=== PATIENT | male | born 1965 | race Caucasian/White ===

== ENCOUNTER 2022-11-21 15:02 | Inpatient (IN) | payer OTHER ==
[2022-11-21] MEDS ORDERED: Nitroglycerin 0.4 MG Tab.SL SL PRN (16:14)
[2022-11-21] MEDS: Insulin Lispro 100 Unit/ML 3 ML KwikPen SUBCUT SCH (17:52)
[2022-11-21] MEDS ORDERED: Tamsulosin 0.4 MG Cap.ER PO SCH ×2 (18:00→20:00)
[2022-11-21] MEDS: Sennosides/Docusate Sodium 50-8.6 MG Tab PO SCH (20:09)
[2022-11-21] MEDS: Carvedilol 12.5 MG Tab PO SCH (20:09)
[2022-11-21] MEDS: Gabapentin 300 MG Cap PO SCH (20:09)
[2022-11-21] MEDS: atorvaSTATin 40 MG Tab PO SCH (20:11)
[2022-11-21] MEDS: Insulin Glargine,Hum.Rec.Anlog 100 UNIT/ML 3 ML Pen SUBCUT SCH (20:12)
[2022-11-21] MEDS: Melatonin 3 MG Tab PO PRN (20:16)
[2022-11-21] MEDS ORDERED: Finasteride 5 MG Tab PO SCH (21:00)
[2022-11-21] MEDS ORDERED: diphenhydrAMINE 50 MG/ML SDV IM PRN (21:05)
[2022-11-22 07:12] LABS: EOSINOPHILS ABSOLUTE AUTO 0.94 10^3/uL (0.10-0.30); EOSINOPHILS PERCENT AUTO 9.5 % (1.0-3.0); HEMATOCRIT 36.2 % (40.0-52.0); HEMOGLOBIN 11.6 g/dL (13.0-17.0); IMMATURE GRAN ABSOLUTE AUTO 0.02 10^3/uL (0.00-0.50); IMMATURE GRAN PERCENT AUTO 0.2 % (0.0-5.0); LYMPHOCYTES ABSOLUTE AUTO 2.93 10^3/uL (1.00-4.00); LYMPHOCYTES PERCENT AUTO 29.7 % (20.0-40.0); MEAN CORPUSCULAR VOLUME 84.2 fL (82.0-92.0); MEAN PLATELET VOLUME 8.6 fL (7.4-10.4); MONOCYTES ABSOLUTE AUTO 0.79 10^3/uL (0.10-0.80); NEUTROPHILS PERCENT AUTO 51.6 % (50.0-70.0); PLATELET COUNT,PLT 298 10^3/uL (150-400); RED CELL DISTRIBUTION WIDTH 13.8 % (11.5-14.5); WHITE BLOOD CELL COUNT,WBC 9.88 10^3/uL (5.00-10.00)
[2022-11-22 07:39] LABS: ALBUMIN 2.44 g/dL (3.40-5.00); ANION GAP 12.9 mmol/L (5-15); BILIRUBIN TOTAL 0.2 mg/dL (0.2-1.0); CALCIUM 8.6 mg/dL (8.7-10.3); CARBON DIOXIDE,CO2 28.2 mmol/L (21.0-32.0); CREATININE 0.93 mg/dL (0.51-1.17); EST CRCL DRUG DOSING (CG) 83.36 mL/min; POTASSIUM,K 4.1 mmol/L (3.5-5.1); PROTEIN TOTAL,TP 7.3 g/dL (6.4-8.2)
[2022-11-22] MEDS: Insulin Lispro 100 Unit/ML 3 ML KwikPen SUBCUT SCH ×3 (07:55→17:57)
[2022-11-22] MEDS: Gabapentin 300 MG Cap PO SCH ×3 (08:18→20:18)
[2022-11-22] MEDS: Aspirin 81 MG Tab.EC PO SCH (08:18)
[2022-11-22] MEDS: Furosemide 40 MG Tab PO SCH (08:19)
[2022-11-22] MEDS: Sertraline 50 MG Tab PO SCH (08:19)
[2022-11-22] MEDS: Multivitamins with Minerals/Iron/Folic Acid/Lycopene Tab PO SCH (08:19)
[2022-11-22] MEDS: Sennosides/Docusate Sodium 50-8.6 MG Tab PO SCH ×2 (08:20→20:18)
[2022-11-22] MEDS: Clopidogrel 75 MG Tab PO SCH (08:20)
[2022-11-22] MEDS: Carvedilol 12.5 MG Tab PO SCH ×2 (08:20→20:17)
[2022-11-22] MEDS: cefTRIAXone 2 GM Vial IVPUSH SCH (08:40)
[2022-11-22] MEDS ORDERED: Finasteride 5 MG Tab PO SCH (09:00)
[2022-11-22] MEDS ORDERED: Tamsulosin 0.4 MG Cap.ER PO SCH (09:00)
[2022-11-22] MEDS ORDERED: cefTRIAXone 2 GM Vial IV SCH (09:00)
[2022-11-22] MEDS: Enoxaparin 40 MG/0.4 ML Syringe SUBCUT SCH (14:03)
[2022-11-22] MEDS: atorvaSTATin 40 MG Tab PO SCH (20:17)
[2022-11-22] MEDS: Melatonin 3 MG Tab PO PRN (20:17)
[2022-11-22] MEDS: Insulin Glargine,Hum.Rec.Anlog 100 UNIT/ML 3 ML Pen SUBCUT SCH (20:22)
[2022-11-23] MEDS: Insulin Lispro 100 Unit/ML 3 ML KwikPen SUBCUT SCH ×3 (08:14→17:16)
[2022-11-23] MEDS: Gabapentin 300 MG Cap PO SCH ×3 (08:22→21:34)
[2022-11-23] MEDS: Multivitamins with Minerals/Iron/Folic Acid/Lycopene Tab PO SCH (08:23)
[2022-11-23] MEDS: Clopidogrel 75 MG Tab PO SCH (08:23)
[2022-11-23] MEDS: Aspirin 81 MG Tab.EC PO SCH (08:23)
[2022-11-23] MEDS: Furosemide 40 MG Tab PO SCH (08:23)
[2022-11-23] MEDS: Sertraline 50 MG Tab PO SCH (08:24)
[2022-11-23] MEDS: Sennosides/Docusate Sodium 50-8.6 MG Tab PO SCH ×2 (08:25→21:33)
[2022-11-23] MEDS: Carvedilol 12.5 MG Tab PO SCH ×2 (08:25→21:33)
[2022-11-23] MEDS: cefTRIAXone 2 GM Vial IVPUSH SCH (08:26)
[2022-11-23] MEDS: Enoxaparin 40 MG/0.4 ML Syringe SUBCUT SCH ×2 (14:39→21:31)
[2022-11-23] MEDS: atorvaSTATin 40 MG Tab PO SCH (21:33)
[2022-11-23] MEDS: Melatonin 3 MG Tab PO SCH (21:34)
[2022-11-23] MEDS: Insulin Glargine,Hum.Rec.Anlog 100 UNIT/ML 3 ML Pen SUBCUT SCH (21:37)
[2022-11-23] MEDS: Non-Formulary Medication 1 Each (Empagliflozin [Jardiance] 10 MG Tablet) PO SCH (23:19)
[2022-11-24] MEDS: Carvedilol 12.5 MG Tab PO SCH ×2 (08:00→20:22)
[2022-11-24] MEDS: Insulin Lispro 100 Unit/ML 3 ML KwikPen SUBCUT SCH ×3 (08:01→18:03)
[2022-11-24] MEDS: Multivitamins with Minerals/Iron/Folic Acid/Lycopene Tab PO SCH (08:48)
[2022-11-24] MEDS: Gabapentin 300 MG Cap PO SCH ×3 (08:48→20:22)
[2022-11-24] MEDS: Sertraline 50 MG Tab PO SCH (08:48)
[2022-11-24] MEDS: Aspirin 81 MG Tab.EC PO SCH (08:49)
[2022-11-24] MEDS: Sennosides/Docusate Sodium 50-8.6 MG Tab PO SCH ×2 (08:49→20:22)
[2022-11-24] MEDS: Clopidogrel 75 MG Tab PO SCH (08:49)
[2022-11-24] MEDS: Furosemide 40 MG Tab PO SCH (08:49)
[2022-11-24] MEDS: cefTRIAXone 2 GM Vial IVPUSH SCH (08:49)
[2022-11-24] MEDS: Sodium Chloride 0.9% 10 ML Syringe FLUSH SCH (08:50)
[2022-11-24] MEDS: Non-Formulary Medication 1 Each (Empagliflozin [Jardiance] 10 MG Tablet) PO SCH (09:10)
[2022-11-24] MEDS: Enoxaparin 40 MG/0.4 ML Syringe SUBCUT SCH (20:21)
[2022-11-24] MEDS: Melatonin 3 MG Tab PO SCH (20:22)
[2022-11-24] MEDS: atorvaSTATin 40 MG Tab PO SCH (20:22)
[2022-11-24] MEDS: Insulin Glargine,Hum.Rec.Anlog 100 UNIT/ML 3 ML Pen SUBCUT SCH (20:45)
[2022-11-25] MEDS: Insulin Lispro 100 Unit/ML 3 ML KwikPen SUBCUT SCH ×3 (08:02→17:53)
[2022-11-25] MEDS: cefTRIAXone 2 GM Vial IVPUSH SCH (08:41)
[2022-11-25] MEDS: Multivitamins with Minerals/Iron/Folic Acid/Lycopene Tab PO SCH (08:43)
[2022-11-25] MEDS: Furosemide 40 MG Tab PO SCH (08:44)
[2022-11-25] MEDS: Clopidogrel 75 MG Tab PO SCH (08:44)
[2022-11-25] MEDS: Carvedilol 12.5 MG Tab PO SCH ×2 (08:44→20:37)
[2022-11-25] MEDS: Aspirin 81 MG Tab.EC PO SCH (08:44)
[2022-11-25] MEDS: Gabapentin 300 MG Cap PO SCH ×3 (08:44→20:36)
[2022-11-25] MEDS: Sennosides/Docusate Sodium 50-8.6 MG Tab PO SCH ×2 (08:44→20:37)
[2022-11-25] MEDS: Sertraline 50 MG Tab PO SCH (08:44)
[2022-11-25] MEDS: Non-Formulary Medication 1 Each (Empagliflozin [Jardiance] 10 MG Tablet) PO SCH (08:46)
[2022-11-25] MEDS: Sodium Chloride 0.9% 10 ML Syringe FLUSH SCH (08:47)
[2022-11-25] MEDS: Enoxaparin 40 MG/0.4 ML Syringe SUBCUT SCH (20:34)
[2022-11-25] MEDS: atorvaSTATin 40 MG Tab PO SCH (20:37)
[2022-11-25] MEDS: Melatonin 3 MG Tab PO SCH (20:37)
[2022-11-25] MEDS: Insulin Glargine,Hum.Rec.Anlog 100 UNIT/ML 3 ML Pen SUBCUT SCH (20:45)
[2022-11-26] MEDS: Insulin Lispro 100 Unit/ML 3 ML KwikPen SUBCUT SCH ×3 (08:02→19:01)
[2022-11-26] MEDS: Sodium Chloride 0.9% 10 ML Syringe FLUSH SCH (08:32)
[2022-11-26] MEDS: cefTRIAXone 2 GM Vial IVPUSH SCH (08:32)
[2022-11-26] MEDS: Gabapentin 300 MG Cap PO SCH ×3 (08:34→20:33)
[2022-11-26] MEDS: Sertraline 50 MG Tab PO SCH (08:35)
[2022-11-26] MEDS: Clopidogrel 75 MG Tab PO SCH (08:35)
[2022-11-26] MEDS: Furosemide 40 MG Tab PO SCH (08:36)
[2022-11-26] MEDS: Multivitamins with Minerals/Iron/Folic Acid/Lycopene Tab PO SCH (08:36)
[2022-11-26] MEDS: Aspirin 81 MG Tab.EC PO SCH (08:36)
[2022-11-26] MEDS: Sennosides/Docusate Sodium 50-8.6 MG Tab PO SCH ×2 (08:36→20:35)
[2022-11-26] MEDS: Carvedilol 12.5 MG Tab PO SCH ×2 (08:37→20:33)
[2022-11-26] MEDS: Non-Formulary Medication 1 Each (Empagliflozin [Jardiance] 10 MG Tablet) PO SCH (08:38)
[2022-11-26 13:02] LABS: BASOPHILS ABSOLUTE AUTO 0.12 10^3/uL (0.00-0.10); BASOPHILS PERCENT AUTO 1.1 % (0.0-1.0); EOSINOPHILS ABSOLUTE AUTO 1.25 10^3/uL (0.10-0.30); EOSINOPHILS PERCENT AUTO 11.8 % (1.0-3.0); HEMATOCRIT 37.1 % (40.0-52.0); HEMOGLOBIN 11.7 g/dL (13.0-17.0); IMMATURE GRAN ABSOLUTE AUTO 0.02 10^3/uL (0.00-0.50); IMMATURE GRAN PERCENT AUTO 0.2 % (0.0-5.0); LYMPHOCYTES ABSOLUTE AUTO 3.38 10^3/uL (1.00-4.00); LYMPHOCYTES PERCENT AUTO 31.8 % (20.0-40.0); MEAN CORPUSCULAR HEMOGLOBIN 26.7 pg (27.0-31.0); MEAN CORPUSCULAR HGB CONC 31.5 g/dL (32.0-36.0); MEAN CORPUSCULAR VOLUME 84.5 fL (82.0-92.0); MEAN PLATELET VOLUME 8.6 fL (7.4-10.4); MONOCYTES ABSOLUTE AUTO 0.69 10^3/uL (0.10-0.80); MONOCYTES PERCENT AUTO 6.5 % (2.0-8.0); NEUTROPHILS ABSOLUTE AUTO 5.16 10^3/uL (2.50-7.00); NEUTROPHILS PERCENT AUTO 48.6 % (50.0-70.0); PLATELET COUNT,PLT 281 10^3/uL (150-400); RED BLOOD CELL COUNT 4.39 10^6/uL (4.50-6.00); WHITE BLOOD CELL COUNT,WBC 10.62 10^3/uL (5.00-10.00)
[2022-11-26 13:22] LABS: CREATININE 0.99 mg/dL (0.51-1.17); EST CRCL DRUG DOSING (CG) 78.31 mL/min
[2022-11-26] MEDS: atorvaSTATin 40 MG Tab PO SCH (20:33)
[2022-11-26] MEDS: Melatonin 3 MG Tab PO SCH (20:33)
[2022-11-26] MEDS: Enoxaparin 40 MG/0.4 ML Syringe SUBCUT SCH (20:34)
[2022-11-26] MEDS: Insulin Glargine,Hum.Rec.Anlog 100 UNIT/ML 3 ML Pen SUBCUT SCH (20:35)
[2022-11-27] MEDS: Insulin Lispro 100 Unit/ML 3 ML KwikPen SUBCUT SCH ×3 (08:05→17:52)
[2022-11-27] MEDS: cefTRIAXone 2 GM Vial IVPUSH SCH (08:25)
[2022-11-27] MEDS: Aspirin 81 MG Tab.EC PO SCH (08:26)
[2022-11-27] MEDS: Multivitamins with Minerals/Iron/Folic Acid/Lycopene Tab PO SCH (08:26)
[2022-11-27] MEDS: Carvedilol 12.5 MG Tab PO SCH ×2 (08:26→20:46)
[2022-11-27] MEDS: Gabapentin 300 MG Cap PO SCH ×3 (08:26→20:48)
[2022-11-27] MEDS: Furosemide 40 MG Tab PO SCH (08:26)
[2022-11-27] MEDS: Sennosides/Docusate Sodium 50-8.6 MG Tab PO SCH ×2 (08:26→20:48)
[2022-11-27] MEDS: Clopidogrel 75 MG Tab PO SCH (08:27)
[2022-11-27] MEDS: Sertraline 50 MG Tab PO SCH (08:27)
[2022-11-27] MEDS: Non-Formulary Medication 1 Each (Empagliflozin [Jardiance] 10 MG Tablet) PO SCH (08:28)
[2022-11-27] MEDS: Sodium Chloride 0.9% 10 ML Syringe FLUSH SCH (08:37)
[2022-11-27] MEDS: Enoxaparin 40 MG/0.4 ML Syringe SUBCUT SCH (20:47)
[2022-11-27] MEDS: Melatonin 3 MG Tab PO SCH (20:47)
[2022-11-27] MEDS: atorvaSTATin 40 MG Tab PO SCH (20:47)
[2022-11-27] MEDS: Insulin Glargine,Hum.Rec.Anlog 100 UNIT/ML 3 ML Pen SUBCUT SCH (20:58)
[2022-11-28] MEDS: Insulin Lispro 100 Unit/ML 3 ML KwikPen SUBCUT SCH ×3 (07:52→17:48)
[2022-11-28] MEDS: Multivitamins with Minerals/Iron/Folic Acid/Lycopene Tab PO SCH (08:52)
[2022-11-28] MEDS: Sertraline 50 MG Tab PO SCH (08:52)
[2022-11-28] MEDS: Aspirin 81 MG Tab.EC PO SCH (08:52)
[2022-11-28] MEDS: Sennosides/Docusate Sodium 50-8.6 MG Tab PO SCH ×2 (08:52→20:28)
[2022-11-28] MEDS: Gabapentin 300 MG Cap PO SCH ×3 (08:52→20:27)
[2022-11-28] MEDS: Carvedilol 12.5 MG Tab PO SCH ×2 (08:52→20:31)
[2022-11-28] MEDS: cefTRIAXone 2 GM Vial IVPUSH SCH (08:53)
[2022-11-28] MEDS: Clopidogrel 75 MG Tab PO SCH (08:53)
[2022-11-28] MEDS: Furosemide 40 MG Tab PO SCH (08:53)
[2022-11-28] MEDS: Non-Formulary Medication 1 Each (Empagliflozin [Jardiance] 10 MG Tablet) PO SCH (08:53)
[2022-11-28] MEDS: Sodium Chloride 0.9% 10 ML Syringe FLUSH SCH (09:03)
[2022-11-28] MEDS: atorvaSTATin 40 MG Tab PO SCH (20:28)
[2022-11-28] MEDS: Melatonin 3 MG Tab PO SCH (20:29)
[2022-11-28] MEDS: Enoxaparin 40 MG/0.4 ML Syringe SUBCUT SCH (20:30)
[2022-11-28] MEDS: Insulin Glargine,Hum.Rec.Anlog 100 UNIT/ML 3 ML Pen SUBCUT SCH (20:36)
[2022-11-29] MEDS: Aspirin 81 MG Tab.EC PO SCH (09:22)
[2022-11-29] MEDS: Sertraline 50 MG Tab PO SCH (09:22)
[2022-11-29] MEDS: Gabapentin 300 MG Cap PO SCH ×3 (09:22→20:05)
[2022-11-29] MEDS: Clopidogrel 75 MG Tab PO SCH (09:22)
[2022-11-29] MEDS: cefTRIAXone 2 GM Vial IVPUSH SCH (09:22)
[2022-11-29] MEDS: Sennosides/Docusate Sodium 50-8.6 MG Tab PO SCH ×2 (09:23→20:05)
[2022-11-29] MEDS: Furosemide 40 MG Tab PO SCH (09:23)
[2022-11-29] MEDS: Multivitamins with Minerals/Iron/Folic Acid/Lycopene Tab PO SCH (09:23)
[2022-11-29] MEDS: Insulin Lispro 100 Unit/ML 3 ML KwikPen SUBCUT SCH ×3 (09:23→17:25)
[2022-11-29] MEDS: Carvedilol 12.5 MG Tab PO SCH ×2 (09:23→20:05)
[2022-11-29] MEDS: Non-Formulary Medication 1 Each (Empagliflozin [Jardiance] 10 MG Tablet) PO SCH (09:25)
[2022-11-29] MEDS: Sodium Chloride 0.9% 10 ML Syringe FLUSH SCH (09:27)
[2022-11-29] MEDS: Enoxaparin 40 MG/0.4 ML Syringe SUBCUT SCH (20:05)
[2022-11-29] MEDS: atorvaSTATin 40 MG Tab PO SCH (20:05)
[2022-11-29] MEDS: Melatonin 3 MG Tab PO SCH (20:05)
[2022-11-29] MEDS: Insulin Glargine,Hum.Rec.Anlog 100 UNIT/ML 3 ML Pen SUBCUT SCH (20:06)
[2022-11-30] MEDS: Sennosides/Docusate Sodium 50-8.6 MG Tab PO SCH ×2 (08:06→20:51)
[2022-11-30] MEDS: Carvedilol 12.5 MG Tab PO SCH ×2 (08:06→20:51)
[2022-11-30] MEDS: Aspirin 81 MG Tab.EC PO SCH (08:06)
[2022-11-30] MEDS: Multivitamins with Minerals/Iron/Folic Acid/Lycopene Tab PO SCH (08:07)
[2022-11-30] MEDS: Sertraline 50 MG Tab PO SCH (08:07)
[2022-11-30] MEDS: Clopidogrel 75 MG Tab PO SCH (08:08)
[2022-11-30] MEDS: Furosemide 40 MG Tab PO SCH (08:08)
[2022-11-30] MEDS: Gabapentin 300 MG Cap PO SCH ×3 (08:08→20:52)
[2022-11-30] MEDS: Insulin Lispro 100 Unit/ML 3 ML KwikPen SUBCUT SCH ×3 (08:09→18:06)
[2022-11-30] MEDS: Non-Formulary Medication 1 Each (Empagliflozin [Jardiance] 10 MG Tablet) PO SCH (08:10)
[2022-11-30] MEDS: cefTRIAXone 2 GM Vial IVPUSH SCH (08:22)
[2022-11-30] MEDS: Sodium Chloride 0.9% 10 ML Syringe FLUSH SCH (08:23)
[2022-11-30] MEDS: Insulin Glargine,Hum.Rec.Anlog 100 UNIT/ML 3 ML Pen SUBCUT SCH (20:47)
[2022-11-30] MEDS: Enoxaparin 40 MG/0.4 ML Syringe SUBCUT SCH (20:48)
[2022-11-30] MEDS: atorvaSTATin 40 MG Tab PO SCH (20:50)
[2022-11-30] MEDS: Melatonin 3 MG Tab PO SCH (20:50)
[2022-12-01] MEDS: Clopidogrel 75 MG Tab PO SCH (08:35)
[2022-12-01] MEDS: Sertraline 50 MG Tab PO SCH (08:35)
[2022-12-01] MEDS: Gabapentin 300 MG Cap PO SCH ×3 (08:36→20:53)
[2022-12-01] MEDS: Furosemide 40 MG Tab PO SCH (08:36)
[2022-12-01] MEDS: Carvedilol 12.5 MG Tab PO SCH ×2 (08:37→20:54)
[2022-12-01] MEDS: Aspirin 81 MG Tab.EC PO SCH (08:37)
[2022-12-01] MEDS: Sennosides/Docusate Sodium 50-8.6 MG Tab PO SCH ×2 (08:38→20:53)
[2022-12-01] MEDS: Multivitamins with Minerals/Iron/Folic Acid/Lycopene Tab PO SCH (08:38)
[2022-12-01] MEDS: Insulin Lispro 100 Unit/ML 3 ML KwikPen SUBCUT SCH ×3 (08:39→18:05)
[2022-12-01] MEDS: Non-Formulary Medication 1 Each (Empagliflozin [Jardiance] 10 MG Tablet) PO SCH (08:41)
[2022-12-01] MEDS: cefTRIAXone 2 GM Vial IVPUSH SCH (08:41)
[2022-12-01] MEDS: Sodium Chloride 0.9% 10 ML Syringe FLUSH SCH (08:41)
[2022-12-01] MEDS: Insulin Glargine,Hum.Rec.Anlog 100 UNIT/ML 3 ML Pen SUBCUT SCH (20:52)
[2022-12-01] MEDS: Enoxaparin 40 MG/0.4 ML Syringe SUBCUT SCH (20:53)
[2022-12-01] MEDS: atorvaSTATin 40 MG Tab PO SCH (20:53)
[2022-12-01] MEDS: Melatonin 3 MG Tab PO SCH (20:54)
[2022-12-02] MEDS: Insulin Lispro 100 Unit/ML 3 ML KwikPen SUBCUT SCH ×3 (08:12→17:57)
[2022-12-02] MEDS: Non-Formulary Medication 1 Each (Empagliflozin [Jardiance] 10 MG Tablet) PO SCH (08:37)
[2022-12-02] MEDS: Gabapentin 300 MG Cap PO SCH ×3 (08:37→20:28)
[2022-12-02] MEDS: Sertraline 50 MG Tab PO SCH (08:38)
[2022-12-02] MEDS: Clopidogrel 75 MG Tab PO SCH (08:38)
[2022-12-02] MEDS: Multivitamins with Minerals/Iron/Folic Acid/Lycopene Tab PO SCH (08:39)
[2022-12-02] MEDS: Sennosides/Docusate Sodium 50-8.6 MG Tab PO SCH ×2 (08:39→20:28)
[2022-12-02] MEDS: Carvedilol 12.5 MG Tab PO SCH ×2 (08:39→20:28)
[2022-12-02] MEDS: Furosemide 40 MG Tab PO SCH (08:39)
[2022-12-02] MEDS: Sodium Chloride 0.9% 10 ML Syringe FLUSH SCH (08:40)
[2022-12-02] MEDS: cefTRIAXone 2 GM Vial IVPUSH SCH (08:40)
[2022-12-02] MEDS: Aspirin 81 MG Tab.EC PO SCH (08:40)
[2022-12-02] MEDS: Melatonin 3 MG Tab PO SCH (20:28)
[2022-12-02] MEDS: atorvaSTATin 40 MG Tab PO SCH (20:28)
[2022-12-02] MEDS: Insulin Glargine,Hum.Rec.Anlog 100 UNIT/ML 3 ML Pen SUBCUT SCH (20:29)
[2022-12-02] MEDS: Enoxaparin 40 MG/0.4 ML Syringe SUBCUT SCH (20:29)
[2022-12-03 07:19] LABS: BASOPHILS ABSOLUTE AUTO 0.07 10^3/uL (0.00-0.10); BASOPHILS PERCENT AUTO 0.8 % (0.0-1.0); EOSINOPHILS ABSOLUTE AUTO 1.01 10^3/uL (0.10-0.30); EOSINOPHILS PERCENT AUTO 11.3 % (1.0-3.0); HEMATOCRIT 38.9 % (40.0-52.0); HEMOGLOBIN 12.4 g/dL (13.0-17.0); IMMATURE GRAN ABSOLUTE AUTO 0.02 10^3/uL (0.00-0.50); IMMATURE GRAN PERCENT AUTO 0.2 % (0.0-5.0); LYMPHOCYTES ABSOLUTE AUTO 3.03 10^3/uL (1.00-4.00); MEAN CORPUSCULAR HEMOGLOBIN 26.9 pg (27.0-31.0); MEAN CORPUSCULAR HGB CONC 31.9 g/dL (32.0-36.0); MEAN CORPUSCULAR VOLUME 84.4 fL (82.0-92.0); MEAN PLATELET VOLUME 8.6 fL (7.4-10.4); MONOCYTES ABSOLUTE AUTO 0.66 10^3/uL (0.10-0.80); MONOCYTES PERCENT AUTO 7.4 % (2.0-8.0); NEUTROPHILS ABSOLUTE AUTO 4.13 10^3/uL (2.50-7.00); NEUTROPHILS PERCENT AUTO 46.3 % (50.0-70.0); PLATELET COUNT,PLT 299 10^3/uL (150-400); RED BLOOD CELL COUNT 4.61 10^6/uL (4.50-6.00); WHITE BLOOD CELL COUNT,WBC 8.92 10^3/uL (5.00-10.00)
[2022-12-03 07:47] LABS: CREATININE 0.98 mg/dL (0.51-1.17); EST CRCL DRUG DOSING (CG) 79.11 mL/min
[2022-12-03] MEDS: Sennosides/Docusate Sodium 50-8.6 MG Tab PO SCH (08:05)
[2022-12-03] MEDS: Multivitamins with Minerals/Iron/Folic Acid/Lycopene Tab PO SCH (08:05)
[2022-12-03] MEDS: cefTRIAXone 2 GM Vial IVPUSH SCH (08:05)
[2022-12-03] MEDS: Furosemide 40 MG Tab PO SCH (08:05)
[2022-12-03] MEDS: Aspirin 81 MG Tab.EC PO SCH (08:05)
[2022-12-03] MEDS: Sertraline 50 MG Tab PO SCH (08:05)
[2022-12-03] MEDS: Clopidogrel 75 MG Tab PO SCH (08:05)
[2022-12-03] MEDS: Gabapentin 300 MG Cap PO SCH (08:05)
[2022-12-03] MEDS: Carvedilol 12.5 MG Tab PO SCH (08:06)
[2022-12-03] MEDS: Insulin Lispro 100 Unit/ML 3 ML KwikPen SUBCUT SCH (08:06)
[2022-12-03] MEDS: Sodium Chloride 0.9% 10 ML Syringe FLUSH SCH (08:07)
[2022-12-03] MEDS: Non-Formulary Medication 1 Each (Empagliflozin [Jardiance] 10 MG Tablet) PO SCH (08:10)
== END 2022-12-03 10:00 | disposition other institution (70) | DRG 95 ==
LOC: KA.MS 15:02
PROVIDERS: ADMIT Internal Medicine; ATTEND Internal Medicine
DX: G06.2 Extradural and subdural abscess, unspecified (principal); I13.0 Hypertensive heart and chronic kidney disease with heart failure and stage 1 through stage 4 chronic kidney disease, or unspecified chronic kidney disease; I50.42 Chronic combined systolic (congestive) and diastolic (congestive) heart failure; E11.621 Type 2 diabetes mellitus with foot ulcer; L97.519 Non-pressure chronic ulcer of other part of right foot with unspecified severity; N18.9 Chronic kidney disease, unspecified; E11.22 Type 2 diabetes mellitus with diabetic chronic kidney disease; I25.10 Atherosclerotic heart disease of native coronary artery without angina pectoris; E11.40 Type 2 diabetes mellitus with diabetic neuropathy, unspecified; K59.00 Constipation, unspecified; R33.9 Retention of urine, unspecified; G47.00 Insomnia, unspecified; F32.A Depression, unspecified; Z79.899 Other long term (current) drug therapy; Z79.82 Long term (current) use of aspirin; Z79.4 Long term (current) use of insulin
CPT/HCPCS: 36415; 51702; 80053; 82565; 82947; 84075; 84460; 85025; 86140; 97605; A9270-GY; J0696; J1650; J1815-GY; J3490

== ENCOUNTER 2022-12-05 11:08 | Inpatient (IN) | payer OTHER ==
[2022-12-05] MEDS ORDERED: Melatonin 3 MG Tab PO PRN (13:50)
[2022-12-05] MEDS ORDERED: Nitroglycerin 0.4 MG Tab.SL SL PRN (13:50)
[2022-12-05] MEDS: Gabapentin 300 MG Cap PO SCH ×2 (15:02→20:42)
[2022-12-05] MEDS ORDERED: cefTRIAXone 2 GM Vial IV SCH (17:00)
[2022-12-05] MEDS: cefTRIAXone 2 GM Vial IVPUSH SCH (17:31)
[2022-12-05] MEDS: Tamsulosin 0.4 MG Cap.ER PO SCH (17:31)
[2022-12-05] MEDS: Insulin Lispro 100 Unit/ML 3 ML KwikPen SUBCUT SCH (18:18)
[2022-12-05] MEDS: Insulin Glargine,Hum.Rec.Anlog 100 UNIT/ML 3 ML Pen SUBCUT SCH (20:40)
[2022-12-05] MEDS: Carvedilol 12.5 MG Tab PO SCH (20:41)
[2022-12-05] MEDS: Melatonin 3 MG Tab PO SCH (20:41)
[2022-12-05] MEDS: atorvaSTATin 40 MG Tab PO SCH (20:41)
[2022-12-05] MEDS: Sennosides/Docusate Sodium 50-8.6 MG Tab PO SCH (20:42)
[2022-12-05] MEDS: Finasteride 5 MG Tab PO SCH (20:42)
[2022-12-06] MEDS: Insulin Lispro 100 Unit/ML 3 ML KwikPen SUBCUT SCH ×3 (08:06→17:41)
[2022-12-06] MEDS: Sertraline 50 MG Tab PO SCH (08:36)
[2022-12-06] MEDS: Furosemide 40 MG Tab PO SCH (08:36)
[2022-12-06] MEDS: Gabapentin 300 MG Cap PO SCH ×3 (08:36→20:01)
[2022-12-06] MEDS: Clopidogrel 75 MG Tab PO SCH (08:36)
[2022-12-06] MEDS: Carvedilol 12.5 MG Tab PO SCH ×2 (08:36→20:14)
[2022-12-06] MEDS: Sennosides/Docusate Sodium 50-8.6 MG Tab PO SCH ×2 (08:36→20:01)
[2022-12-06] MEDS: Multivitamins with Minerals/Iron/Folic Acid/Lycopene Tab PO SCH (08:37)
[2022-12-06] MEDS: Enoxaparin 40 MG/0.4 ML Syringe SUBCUT SCH (08:37)
[2022-12-06] MEDS: Aspirin 81 MG Tab.EC PO SCH (08:37)
[2022-12-06] MEDS: cefTRIAXone 2 GM Vial IVPUSH SCH (17:28)
[2022-12-06] MEDS: Tamsulosin 0.4 MG Cap.ER PO SCH (17:38)
[2022-12-06] MEDS: Melatonin 3 MG Tab PO SCH (20:01)
[2022-12-06] MEDS: Finasteride 5 MG Tab PO SCH (20:01)
[2022-12-06] MEDS: atorvaSTATin 40 MG Tab PO SCH (20:01)
[2022-12-06] MEDS: Insulin Glargine,Hum.Rec.Anlog 100 UNIT/ML 3 ML Pen SUBCUT SCH (20:06)
[2022-12-07] MEDS: Clopidogrel 75 MG Tab PO SCH (08:21)
[2022-12-07] MEDS: Aspirin 81 MG Tab.EC PO SCH (08:21)
[2022-12-07] MEDS: Carvedilol 12.5 MG Tab PO SCH ×2 (08:21→21:12)
[2022-12-07] MEDS: Multivitamins with Minerals/Iron/Folic Acid/Lycopene Tab PO SCH (08:21)
[2022-12-07] MEDS: Sertraline 50 MG Tab PO SCH (08:21)
[2022-12-07] MEDS: Gabapentin 300 MG Cap PO SCH ×3 (08:21→21:12)
[2022-12-07] MEDS: Insulin Lispro 100 Unit/ML 3 ML KwikPen SUBCUT SCH ×3 (08:22→17:52)
[2022-12-07] MEDS: Enoxaparin 40 MG/0.4 ML Syringe SUBCUT SCH (08:22)
[2022-12-07] MEDS: Sennosides/Docusate Sodium 50-8.6 MG Tab PO SCH ×2 (08:22→21:12)
[2022-12-07] MEDS: Furosemide 40 MG Tab PO SCH (08:22)
[2022-12-07] MEDS: Tamsulosin 0.4 MG Cap.ER PO SCH (17:39)
[2022-12-07] MEDS: cefTRIAXone 2 GM Vial IVPUSH SCH (17:39)
[2022-12-07] MEDS: Finasteride 5 MG Tab PO SCH (21:12)
[2022-12-07] MEDS: atorvaSTATin 40 MG Tab PO SCH (21:12)
[2022-12-07] MEDS: Melatonin 3 MG Tab PO SCH (21:12)
[2022-12-07] MEDS: Insulin Glargine,Hum.Rec.Anlog 100 UNIT/ML 3 ML Pen SUBCUT SCH (21:19)
[2022-12-08] MEDS: Insulin Lispro 100 Unit/ML 3 ML KwikPen SUBCUT SCH ×3 (07:42→17:42)
[2022-12-08] MEDS: Sennosides/Docusate Sodium 50-8.6 MG Tab PO SCH ×2 (08:42→21:42)
[2022-12-08] MEDS: Multivitamins with Minerals/Iron/Folic Acid/Lycopene Tab PO SCH (08:42)
[2022-12-08] MEDS: Sertraline 50 MG Tab PO SCH (08:42)
[2022-12-08] MEDS: Aspirin 81 MG Tab.EC PO SCH (08:42)
[2022-12-08] MEDS: Gabapentin 300 MG Cap PO SCH ×3 (08:42→21:41)
[2022-12-08] MEDS: Enoxaparin 40 MG/0.4 ML Syringe SUBCUT SCH (08:43)
[2022-12-08] MEDS: Clopidogrel 75 MG Tab PO SCH (08:43)
[2022-12-08] MEDS: Carvedilol 12.5 MG Tab PO SCH ×2 (09:00→21:41)
[2022-12-08] MEDS: Furosemide 40 MG Tab PO SCH (10:15)
[2022-12-08] MEDS: cefTRIAXone 2 GM Vial IVPUSH SCH (17:22)
[2022-12-08] MEDS: Tamsulosin 0.4 MG Cap.ER PO SCH (17:22)
[2022-12-08] MEDS: Insulin Glargine,Hum.Rec.Anlog 100 UNIT/ML 3 ML Pen SUBCUT SCH (21:40)
[2022-12-08] MEDS: Finasteride 5 MG Tab PO SCH (21:42)
[2022-12-08] MEDS: Melatonin 3 MG Tab PO SCH (21:42)
[2022-12-08] MEDS: atorvaSTATin 40 MG Tab PO SCH (21:42)
[2022-12-09] MEDS: Insulin Lispro 100 Unit/ML 3 ML KwikPen SUBCUT SCH ×3 (08:02→17:54)
[2022-12-09] MEDS: Aspirin 81 MG Tab.EC PO SCH (08:28)
[2022-12-09] MEDS: Furosemide 40 MG Tab PO SCH (08:28)
[2022-12-09] MEDS: Sertraline 50 MG Tab PO SCH (08:28)
[2022-12-09] MEDS: Clopidogrel 75 MG Tab PO SCH (08:29)
[2022-12-09] MEDS: Multivitamins with Minerals/Iron/Folic Acid/Lycopene Tab PO SCH (08:29)
[2022-12-09] MEDS: Enoxaparin 40 MG/0.4 ML Syringe SUBCUT SCH (08:29)
[2022-12-09] MEDS: Gabapentin 300 MG Cap PO SCH ×3 (08:29→20:50)
[2022-12-09] MEDS: Carvedilol 12.5 MG Tab PO SCH ×2 (08:29→20:50)
[2022-12-09] MEDS: Sennosides/Docusate Sodium 50-8.6 MG Tab PO SCH ×2 (08:29→20:50)
[2022-12-09] MEDS: Tamsulosin 0.4 MG Cap.ER PO SCH (17:38)
[2022-12-09] MEDS: cefTRIAXone 2 GM Vial IVPUSH SCH (17:41)
[2022-12-09] MEDS: Insulin Glargine,Hum.Rec.Anlog 100 UNIT/ML 3 ML Pen SUBCUT SCH (20:48)
[2022-12-09] MEDS: Melatonin 3 MG Tab PO SCH (20:50)
[2022-12-09] MEDS: Finasteride 5 MG Tab PO SCH (20:50)
[2022-12-09] MEDS: atorvaSTATin 40 MG Tab PO SCH (20:50)
[2022-12-10 07:14] LABS: BASOPHILS ABSOLUTE AUTO 0.06 10^3/uL (0.00-0.10); BASOPHILS PERCENT AUTO 0.7 % (0.0-1.0); EOSINOPHILS ABSOLUTE AUTO 0.84 10^3/uL (0.10-0.30); EOSINOPHILS PERCENT AUTO 10.1 % (1.0-3.0); HEMATOCRIT 38.2 % (40.0-52.0); HEMOGLOBIN 12.2 g/dL (13.0-17.0); IMMATURE GRAN ABSOLUTE AUTO 0.01 10^3/uL (0.00-0.50); IMMATURE GRAN PERCENT AUTO 0.1 % (0.0-5.0); LYMPHOCYTES ABSOLUTE AUTO 2.53 10^3/uL (1.00-4.00); LYMPHOCYTES PERCENT AUTO 30.4 % (20.0-40.0); MEAN CORPUSCULAR HGB CONC 31.9 g/dL (32.0-36.0); MEAN CORPUSCULAR VOLUME 84.5 fL (82.0-92.0); MEAN PLATELET VOLUME 8.4 fL (7.4-10.4); MONOCYTES ABSOLUTE AUTO 0.63 10^3/uL (0.10-0.80); MONOCYTES PERCENT AUTO 7.6 % (2.0-8.0); NEUTROPHILS ABSOLUTE AUTO 4.24 10^3/uL (2.50-7.00); NEUTROPHILS PERCENT AUTO 51.1 % (50.0-70.0); PLATELET COUNT,PLT 270 10^3/uL (150-400); RED BLOOD CELL COUNT 4.52 10^6/uL (4.50-6.00); RED CELL DISTRIBUTION WIDTH 14.3 % (11.5-14.5); WHITE BLOOD CELL COUNT,WBC 8.31 10^3/uL (5.00-10.00)
[2022-12-10 07:29] LABS: ALANINE AMINOTRANSFERASE,ALT 47 U/L (14-63); ALKALINE PHOSPHATASE 80 U/L (46-116); CREATININE 0.92 mg/dL (0.51-1.17); EST CRCL DRUG DOSING (CG) 84.27 mL/min
[2022-12-10 07:34] LABS: C-REACTIVE PROTEIN < 0.4 mg/dL (0.0-0.9); ESTIMATED GFR 97 mL/min (>=60)
[2022-12-10] MEDS: Insulin Lispro 100 Unit/ML 3 ML KwikPen SUBCUT SCH ×3 (08:04→17:55)
[2022-12-10] MEDS: Sertraline 50 MG Tab PO SCH (08:13)
[2022-12-10] MEDS: Multivitamins with Minerals/Iron/Folic Acid/Lycopene Tab PO SCH (08:13)
[2022-12-10] MEDS: Gabapentin 300 MG Cap PO SCH ×3 (08:13→20:15)
[2022-12-10] MEDS: Aspirin 81 MG Tab.EC PO SCH (08:14)
[2022-12-10] MEDS: Sennosides/Docusate Sodium 50-8.6 MG Tab PO SCH ×2 (08:14→20:15)
[2022-12-10] MEDS: Clopidogrel 75 MG Tab PO SCH (08:14)
[2022-12-10] MEDS: Furosemide 40 MG Tab PO SCH (08:15)
[2022-12-10] MEDS: Enoxaparin 40 MG/0.4 ML Syringe SUBCUT SCH (08:18)
[2022-12-10] MEDS: Carvedilol 12.5 MG Tab PO SCH ×2 (08:18→20:31)
[2022-12-10] MEDS: Empagliflozin 10 MG Tab PO SCH (13:11)
[2022-12-10] MEDS: Tamsulosin 0.4 MG Cap.ER PO SCH (17:36)
[2022-12-10] MEDS: cefTRIAXone 2 GM Vial IVPUSH SCH (17:36)
[2022-12-10] MEDS: atorvaSTATin 40 MG Tab PO SCH (20:15)
[2022-12-10] MEDS: Finasteride 5 MG Tab PO SCH (20:15)
[2022-12-10] MEDS: Melatonin 3 MG Tab PO SCH (20:15)
[2022-12-10] MEDS: Insulin Glargine,Hum.Rec.Anlog 100 UNIT/ML 3 ML Pen SUBCUT SCH (20:22)
[2022-12-11] MEDS: Empagliflozin 10 MG Tab PO SCH (08:02)
[2022-12-11] MEDS: Insulin Lispro 100 Unit/ML 3 ML KwikPen SUBCUT SCH ×3 (08:02→17:56)
[2022-12-11] MEDS: Sertraline 50 MG Tab PO SCH (08:03)
[2022-12-11] MEDS: Clopidogrel 75 MG Tab PO SCH (08:03)
[2022-12-11] MEDS: Multivitamins with Minerals/Iron/Folic Acid/Lycopene Tab PO SCH (08:03)
[2022-12-11] MEDS: Aspirin 81 MG Tab.EC PO SCH (08:04)
[2022-12-11] MEDS: Furosemide 40 MG Tab PO SCH (08:04)
[2022-12-11] MEDS: Gabapentin 300 MG Cap PO SCH ×3 (08:04→20:24)
[2022-12-11] MEDS: Sennosides/Docusate Sodium 50-8.6 MG Tab PO SCH ×2 (08:05→20:24)
[2022-12-11] MEDS: Enoxaparin 40 MG/0.4 ML Syringe SUBCUT SCH (08:06)
[2022-12-11] MEDS: Carvedilol 12.5 MG Tab PO SCH ×2 (08:06→20:28)
[2022-12-11] MEDS ORDERED: Gadobenate Dimeglumine 529 MG/ML 20 ML SDV IVPUSH ONE (13:25)
[2022-12-11] MEDS: Tamsulosin 0.4 MG Cap.ER PO SCH (17:43)
[2022-12-11] MEDS: cefTRIAXone 2 GM Vial IVPUSH SCH (17:43)
[2022-12-11] MEDS: Finasteride 5 MG Tab PO SCH (20:24)
[2022-12-11] MEDS: Melatonin 3 MG Tab PO SCH (20:24)
[2022-12-11] MEDS: atorvaSTATin 40 MG Tab PO SCH (20:24)
[2022-12-11] MEDS: Insulin Glargine,Hum.Rec.Anlog 100 UNIT/ML 3 ML Pen SUBCUT SCH (20:27)
[2022-12-12] MEDS: Insulin Lispro 100 Unit/ML 3 ML KwikPen SUBCUT SCH ×3 (08:22→17:58)
[2022-12-12] MEDS: Empagliflozin 10 MG Tab PO SCH (09:27)
[2022-12-12] MEDS: Aspirin 81 MG Tab.EC PO SCH (09:27)
[2022-12-12] MEDS: Sennosides/Docusate Sodium 50-8.6 MG Tab PO SCH ×2 (09:27→21:15)
[2022-12-12] MEDS: Multivitamins with Minerals/Iron/Folic Acid/Lycopene Tab PO SCH (09:27)
[2022-12-12] MEDS: Clopidogrel 75 MG Tab PO SCH (09:27)
[2022-12-12] MEDS: Carvedilol 12.5 MG Tab PO SCH ×2 (09:27→21:15)
[2022-12-12] MEDS: Sertraline 50 MG Tab PO SCH (09:27)
[2022-12-12] MEDS: Furosemide 40 MG Tab PO SCH (09:27)
[2022-12-12] MEDS: Gabapentin 300 MG Cap PO SCH ×3 (09:27→21:14)
[2022-12-12] MEDS: Enoxaparin 40 MG/0.4 ML Syringe SUBCUT SCH (09:28)
[2022-12-12] MEDS: Tamsulosin 0.4 MG Cap.ER PO SCH (17:50)
[2022-12-12] MEDS: cefTRIAXone 2 GM Vial IVPUSH SCH (17:50)
[2022-12-12] MEDS: Finasteride 5 MG Tab PO SCH (21:15)
[2022-12-12] MEDS: Melatonin 3 MG Tab PO SCH (21:15)
[2022-12-12] MEDS: atorvaSTATin 40 MG Tab PO SCH (21:15)
[2022-12-12] MEDS: Insulin Glargine,Hum.Rec.Anlog 100 UNIT/ML 3 ML Pen SUBCUT SCH (21:24)
[2022-12-13] MEDS: Insulin Lispro 100 Unit/ML 3 ML KwikPen SUBCUT SCH ×3 (07:46→17:50)
[2022-12-13] MEDS: Sertraline 50 MG Tab PO SCH (08:58)
[2022-12-13] MEDS: Furosemide 40 MG Tab PO SCH (08:59)
[2022-12-13] MEDS: Multivitamins with Minerals/Iron/Folic Acid/Lycopene Tab PO SCH (08:59)
[2022-12-13] MEDS: Clopidogrel 75 MG Tab PO SCH (08:59)
[2022-12-13] MEDS: Sennosides/Docusate Sodium 50-8.6 MG Tab PO SCH ×2 (08:59→21:07)
[2022-12-13] MEDS: Carvedilol 12.5 MG Tab PO SCH ×2 (08:59→21:04)
[2022-12-13] MEDS: Gabapentin 300 MG Cap PO SCH ×3 (08:59→21:07)
[2022-12-13] MEDS: Enoxaparin 40 MG/0.4 ML Syringe SUBCUT SCH (09:00)
[2022-12-13] MEDS: Empagliflozin 10 MG Tab PO SCH (09:00)
[2022-12-13] MEDS: Aspirin 81 MG Tab.EC PO SCH (09:00)
[2022-12-13] MEDS: cefTRIAXone 2 GM Vial IVPUSH SCH (17:02)
[2022-12-13] MEDS: Tamsulosin 0.4 MG Cap.ER PO SCH (17:02)
[2022-12-13] MEDS: Melatonin 3 MG Tab PO SCH (21:03)
[2022-12-13] MEDS: Finasteride 5 MG Tab PO SCH (21:04)
[2022-12-13] MEDS: atorvaSTATin 40 MG Tab PO SCH (21:06)
[2022-12-13] MEDS: Insulin Glargine,Hum.Rec.Anlog 100 UNIT/ML 3 ML Pen SUBCUT SCH (21:07)
[2022-12-14] MEDS: Insulin Lispro 100 Unit/ML 3 ML KwikPen SUBCUT SCH ×3 (07:49→18:03)
[2022-12-14] MEDS: Multivitamins with Minerals/Iron/Folic Acid/Lycopene Tab PO SCH (08:25)
[2022-12-14] MEDS: Empagliflozin 10 MG Tab PO SCH (08:25)
[2022-12-14] MEDS: Sertraline 50 MG Tab PO SCH (08:25)
[2022-12-14] MEDS: Carvedilol 12.5 MG Tab PO SCH ×2 (08:25→21:08)
[2022-12-14] MEDS: Gabapentin 300 MG Cap PO SCH ×3 (08:25→21:07)
[2022-12-14] MEDS: Sennosides/Docusate Sodium 50-8.6 MG Tab PO SCH ×2 (08:25→21:08)
[2022-12-14] MEDS: Clopidogrel 75 MG Tab PO SCH (08:26)
[2022-12-14] MEDS: Furosemide 40 MG Tab PO SCH (08:26)
[2022-12-14] MEDS: Aspirin 81 MG Tab.EC PO SCH (08:26)
[2022-12-14] MEDS: Enoxaparin 40 MG/0.4 ML Syringe SUBCUT SCH (08:26)
[2022-12-14] MEDS: Cefadroxil 500 MG Cap PO SCH ×2 (08:34→21:06)
[2022-12-14] MEDS: Tamsulosin 0.4 MG Cap.ER PO SCH (17:53)
[2022-12-14] MEDS: atorvaSTATin 40 MG Tab PO SCH (21:06)
[2022-12-14] MEDS: Insulin Glargine,Hum.Rec.Anlog 100 UNIT/ML 3 ML Pen SUBCUT SCH (21:06)
[2022-12-14] MEDS: Finasteride 5 MG Tab PO SCH (21:08)
[2022-12-14] MEDS: Melatonin 3 MG Tab PO SCH (21:08)
[2022-12-15] MEDS: Insulin Lispro 100 Unit/ML 3 ML KwikPen SUBCUT SCH ×3 (07:49→17:32)
[2022-12-15] MEDS: Enoxaparin 40 MG/0.4 ML Syringe SUBCUT SCH (08:24)
[2022-12-15] MEDS: Cefadroxil 500 MG Cap PO SCH ×2 (08:25→20:55)
[2022-12-15] MEDS: Gabapentin 300 MG Cap PO SCH ×3 (08:25→20:55)
[2022-12-15] MEDS: Empagliflozin 10 MG Tab PO SCH (08:25)
[2022-12-15] MEDS: Aspirin 81 MG Tab.EC PO SCH (08:25)
[2022-12-15] MEDS: Carvedilol 12.5 MG Tab PO SCH ×2 (08:25→20:55)
[2022-12-15] MEDS: Multivitamins with Minerals/Iron/Folic Acid/Lycopene Tab PO SCH (08:25)
[2022-12-15] MEDS: Sertraline 50 MG Tab PO SCH (08:26)
[2022-12-15] MEDS: Sennosides/Docusate Sodium 50-8.6 MG Tab PO SCH ×2 (08:26→20:55)
[2022-12-15] MEDS: Furosemide 40 MG Tab PO SCH (08:26)
[2022-12-15] MEDS: Clopidogrel 75 MG Tab PO SCH (08:26)
[2022-12-15] MEDS: Tamsulosin 0.4 MG Cap.ER PO SCH (17:28)
[2022-12-15] MEDS: Insulin Glargine,Hum.Rec.Anlog 100 UNIT/ML 3 ML Pen SUBCUT SCH (20:53)
[2022-12-15] MEDS: Finasteride 5 MG Tab PO SCH (20:55)
[2022-12-15] MEDS: Melatonin 3 MG Tab PO SCH (20:55)
[2022-12-15] MEDS: atorvaSTATin 40 MG Tab PO SCH (20:55)
[2022-12-16] MEDS: Insulin Lispro 100 Unit/ML 3 ML KwikPen SUBCUT SCH ×3 (07:32→17:39)
[2022-12-16] MEDS: Gabapentin 300 MG Cap PO SCH ×3 (08:48→20:19)
[2022-12-16] MEDS: Enoxaparin 40 MG/0.4 ML Syringe SUBCUT SCH (08:48)
[2022-12-16] MEDS: Sennosides/Docusate Sodium 50-8.6 MG Tab PO SCH ×2 (08:48→20:21)
[2022-12-16] MEDS: Clopidogrel 75 MG Tab PO SCH (08:49)
[2022-12-16] MEDS: Furosemide 40 MG Tab PO SCH (08:49)
[2022-12-16] MEDS: Sertraline 50 MG Tab PO SCH (08:49)
[2022-12-16] MEDS: Empagliflozin 10 MG Tab PO SCH (08:49)
[2022-12-16] MEDS: Cefadroxil 500 MG Cap PO SCH ×2 (08:49→20:19)
[2022-12-16] MEDS: Carvedilol 12.5 MG Tab PO SCH ×2 (08:49→20:20)
[2022-12-16] MEDS: Multivitamins with Minerals/Iron/Folic Acid/Lycopene Tab PO SCH (08:49)
[2022-12-16] MEDS: Aspirin 81 MG Tab.EC PO SCH (08:49)
[2022-12-16] MEDS: Tamsulosin 0.4 MG Cap.ER PO SCH (17:34)
[2022-12-16] MEDS: Finasteride 5 MG Tab PO SCH (20:19)
[2022-12-16] MEDS: atorvaSTATin 40 MG Tab PO SCH (20:20)
[2022-12-16] MEDS: Melatonin 3 MG Tab PO SCH (20:20)
[2022-12-16] MEDS: Insulin Glargine,Hum.Rec.Anlog 100 UNIT/ML 3 ML Pen SUBCUT SCH (20:21)
[2022-12-17] MEDS: Insulin Lispro 100 Unit/ML 3 ML KwikPen SUBCUT SCH ×3 (07:42→17:55)
[2022-12-17] MEDS: Sertraline 50 MG Tab PO SCH (08:07)
[2022-12-17] MEDS: Multivitamins with Minerals/Iron/Folic Acid/Lycopene Tab PO SCH (08:07)
[2022-12-17] MEDS: Cefadroxil 500 MG Cap PO SCH ×2 (08:08→20:50)
[2022-12-17] MEDS: Sennosides/Docusate Sodium 50-8.6 MG Tab PO SCH ×2 (08:08→20:50)
[2022-12-17] MEDS: Clopidogrel 75 MG Tab PO SCH (08:09)
[2022-12-17] MEDS: Gabapentin 300 MG Cap PO SCH ×3 (08:09→20:49)
[2022-12-17] MEDS: Carvedilol 12.5 MG Tab PO SCH ×2 (08:09→20:51)
[2022-12-17] MEDS: Furosemide 40 MG Tab PO SCH (08:10)
[2022-12-17] MEDS: Enoxaparin 40 MG/0.4 ML Syringe SUBCUT SCH (08:10)
[2022-12-17] MEDS: Aspirin 81 MG Tab.EC PO SCH (08:10)
[2022-12-17] MEDS: Empagliflozin 10 MG Tab PO SCH (08:10)
[2022-12-17] MEDS: Tamsulosin 0.4 MG Cap.ER PO SCH (19:00)
[2022-12-17] MEDS: atorvaSTATin 40 MG Tab PO SCH (20:49)
[2022-12-17] MEDS: Melatonin 3 MG Tab PO SCH (20:50)
[2022-12-17] MEDS: Finasteride 5 MG Tab PO SCH (20:51)
[2022-12-17] MEDS: Insulin Glargine,Hum.Rec.Anlog 100 UNIT/ML 3 ML Pen SUBCUT SCH (20:52)
[2022-12-18] MEDS: Insulin Lispro 100 Unit/ML 3 ML KwikPen SUBCUT SCH ×3 (07:56→17:43)
[2022-12-18] MEDS: Gabapentin 300 MG Cap PO SCH ×3 (09:21→20:06)
[2022-12-18] MEDS: Carvedilol 12.5 MG Tab PO SCH ×2 (09:22→20:11)
[2022-12-18] MEDS: Clopidogrel 75 MG Tab PO SCH (09:22)
[2022-12-18] MEDS: Sennosides/Docusate Sodium 50-8.6 MG Tab PO SCH ×2 (09:22→20:08)
[2022-12-18] MEDS: Aspirin 81 MG Tab.EC PO SCH (09:22)
[2022-12-18] MEDS: Sertraline 50 MG Tab PO SCH (09:22)
[2022-12-18] MEDS: Furosemide 40 MG Tab PO SCH (09:22)
[2022-12-18] MEDS: Multivitamins with Minerals/Iron/Folic Acid/Lycopene Tab PO SCH (09:22)
[2022-12-18] MEDS: Empagliflozin 10 MG Tab PO SCH (09:22)
[2022-12-18] MEDS: Cefadroxil 500 MG Cap PO SCH ×2 (09:23→20:10)
[2022-12-18] MEDS: Enoxaparin 40 MG/0.4 ML Syringe SUBCUT SCH (09:25)
[2022-12-18] MEDS: Tamsulosin 0.4 MG Cap.ER PO SCH (18:08)
[2022-12-18] MEDS: Melatonin 3 MG Tab PO SCH (20:07)
[2022-12-18] MEDS: atorvaSTATin 40 MG Tab PO SCH (20:08)
[2022-12-18] MEDS: Finasteride 5 MG Tab PO SCH (20:09)
[2022-12-18] MEDS: Insulin Glargine,Hum.Rec.Anlog 100 UNIT/ML 3 ML Pen SUBCUT SCH (20:16)
[2022-12-19] MEDS: Sertraline 50 MG Tab PO SCH (08:29)
[2022-12-19] MEDS: Multivitamins with Minerals/Iron/Folic Acid/Lycopene Tab PO SCH (08:29)
[2022-12-19] MEDS: Enoxaparin 40 MG/0.4 ML Syringe SUBCUT SCH (08:29)
[2022-12-19] MEDS: Carvedilol 12.5 MG Tab PO SCH (08:29)
[2022-12-19] MEDS: Aspirin 81 MG Tab.EC PO SCH (08:29)
[2022-12-19] MEDS: Furosemide 40 MG Tab PO SCH (08:29)
[2022-12-19] MEDS: Empagliflozin 10 MG Tab PO SCH (08:30)
[2022-12-19] MEDS: Cefadroxil 500 MG Cap PO SCH (08:30)
[2022-12-19] MEDS: Gabapentin 300 MG Cap PO SCH (08:30)
[2022-12-19] MEDS: Sennosides/Docusate Sodium 50-8.6 MG Tab PO SCH (08:30)
[2022-12-19] MEDS: Clopidogrel 75 MG Tab PO SCH (08:30)
[2022-12-19] MEDS: Insulin Lispro 100 Unit/ML 3 ML KwikPen SUBCUT SCH (08:56)
== END 2022-12-19 11:00 | disposition home or self-care (01) | DRG 95 ==
LOC: KA.MS 12:00 → UNDOADMIN 12:00 → KA.MS 13:48
PROVIDERS: ADMIT Internal Medicine; ATTEND Internal Medicine
DX: G06.1 Intraspinal abscess and granuloma (principal); I13.0 Hypertensive heart and chronic kidney disease with heart failure and stage 1 through stage 4 chronic kidney disease, or unspecified chronic kidney disease; I50.40 Unspecified combined systolic (congestive) and diastolic (congestive) heart failure; E11.621 Type 2 diabetes mellitus with foot ulcer; L97.519 Non-pressure chronic ulcer of other part of right foot with unspecified severity; J45.909 Unspecified asthma, uncomplicated; F41.9 Anxiety disorder, unspecified; E66.9 Obesity, unspecified; E11.22 Type 2 diabetes mellitus with diabetic chronic kidney disease; I25.10 Atherosclerotic heart disease of native coronary artery without angina pectoris; E11.40 Type 2 diabetes mellitus with diabetic neuropathy, unspecified; K59.00 Constipation, unspecified; D64.9 Anemia, unspecified; G47.00 Insomnia, unspecified; F32.A Depression, unspecified; I25.2 Old myocardial infarction; Z95.5 Presence of coronary angioplasty implant and graft; Z79.02 Long term (current) use of antithrombotics/antiplatelets; Z79.4 Long term (current) use of insulin; Z79.899 Other long term (current) drug therapy; Z79.82 Long term (current) use of aspirin; Z68.37 Body mass index [BMI] 37.0-37.9, adult
CPT/HCPCS: 72156; 72157; 82565; 82947; 84075; 84460; 85025; 85652; 86140; 97605; A9270-GY; A9577; J0696; J1650; J1815-GY

== ENCOUNTER 2023-01-07 20:38 | Emergency (ER) | payer OTHER ==
[2023-01-07 21:21] LABS: BASOPHILS ABSOLUTE AUTO 0.07 10^3/uL (0.00-0.10); BASOPHILS PERCENT AUTO 0.6 % (0.0-1.0); EOSINOPHILS ABSOLUTE AUTO 0.45 10^3/uL (0.10-0.30); EOSINOPHILS PERCENT AUTO 4.1 % (1.0-3.0); HEMOGLOBIN 14.1 g/dL (13.0-17.0); IMMATURE GRAN ABSOLUTE AUTO 0.02 10^3/uL (0.00-0.50); IMMATURE GRAN PERCENT AUTO 0.2 % (0.0-5.0); LYMPHOCYTES ABSOLUTE AUTO 3.85 10^3/uL (1.00-4.00); LYMPHOCYTES PERCENT AUTO 35.4 % (20.0-40.0); MEAN CORPUSCULAR HEMOGLOBIN 26.7 pg (27.0-31.0); MEAN CORPUSCULAR VOLUME 83.3 fL (82.0-92.0); MEAN PLATELET VOLUME 9.2 fL (7.4-10.4); MONOCYTES ABSOLUTE AUTO 0.84 10^3/uL (0.10-0.80); MONOCYTES PERCENT AUTO 7.7 % (2.0-8.0); NEUTROPHILS ABSOLUTE AUTO 5.65 10^3/uL (2.50-7.00); PLATELET COUNT,PLT 318 10^3/uL (150-400); RED BLOOD CELL COUNT 5.28 10^6/uL (4.50-6.00); RED CELL DISTRIBUTION WIDTH 14.7 % (11.5-14.5); WHITE BLOOD CELL COUNT,WBC 10.88 10^3/uL (5.00-10.00)
[2023-01-07 21:37] LABS: ALANINE AMINOTRANSFERASE,ALT 33 U/L (14-63); ALBUMIN 3.28 g/dL (3.40-5.00); ALKALINE PHOSPHATASE 85 U/L (46-116); ANION GAP 13.3 mmol/L (5-15); ASPARTATE AMNIOTRANSFERASE,AST 16 U/L (15-37); BILIRUBIN TOTAL 0.2 mg/dL (0.2-1.0); BLOOD UREA NITROGEN,BUN 35 mg/dL (7-18); CALCIUM 8.8 mg/dL (8.7-10.3); CARBON DIOXIDE,CO2 26.9 mmol/L (21.0-32.0); CHLORIDE,CL 103 mmol/L (98-107); GLUCOSE RANDOM 147 mg/dL (70-140); POTASSIUM,K 4.2 mmol/L (3.5-5.1); PROTEIN TOTAL,TP 7.5 g/dL (6.4-8.2); SODIUM,NA 139 mmol/L (136-145)
[2023-01-07 21:39] LABS: ESTIMATED GFR 54 mL/min (>=60)
[2023-01-07 21:40] LABS: C-REACTIVE PROTEIN < 0.4 mg/dL (0.0-0.9)
== END 2023-01-07 22:50 | disposition home or self-care (01) ==
LOC: KA.ED 20:38
DX: L97.519 Non-pressure chronic ulcer of other part of right foot with unspecified severity (principal); J45.909 Unspecified asthma, uncomplicated; E11.9 Type 2 diabetes mellitus without complications; E66.9 Obesity, unspecified; I25.2 Old myocardial infarction; Z95.5 Presence of coronary angioplasty implant and graft; Z79.82 Long term (current) use of aspirin; Z79.4 Long term (current) use of insulin; Z79.899 Other long term (current) drug therapy
CPT/HCPCS: 80053; 83605; 85025; 86140; 99283

== ENCOUNTER 2023-01-10 09:15 | Inpatient (IN) | payer OTHER ==
[2023-01-10] MEDS ORDERED: Nitroglycerin 0.4 MG Tab.SL SL PRN (12:03)
[2023-01-10] MEDS ORDERED: Acetaminophen 325 MG Tab PO PRN (12:07)
[2023-01-10] MEDS ORDERED: Ondansetron 4 MG Tab.DIS PO PRN (12:07)
[2023-01-10] MEDS ORDERED: Polyethylene Glycol 3350 Powder 17 GM Packet PO PRN (12:07)
[2023-01-10] MEDS ORDERED: Calcium Carbonate 500 MG Tab.Chew PO PRN (12:07)
[2023-01-10] MEDS ORDERED: Glucagon,Human Recombinant 1 MG Vial IM PRN (12:19)
[2023-01-10] MEDS ORDERED: 50% Dextrose in Water 50 ML Syringe IVPUSH PRN (12:19)
[2023-01-10 12:41] LABS: HEMOGLOBIN A1C 7.3 % (4.3-5.7)
[2023-01-10 13:04] LABS: C-REACTIVE PROTEIN < 0.4 mg/dL (0.0-0.9); CHOLESTEROL HDL 41 mg/dL (40-60); CHOLESTEROL LDL CALCULATED 67 mg/dL (0-100); CHOLESTEROL TOTAL 137 mg/dL (100-200); MAGNESIUM 2.2 mg/dL (1.8-2.4); TRIGLYCERIDES 145 mg/dL (30-150); TSH ULTRASENSITIVE 1.043 uIU/mL (0.340-4.820)
[2023-01-10] MEDS ORDERED: Sodium Chloride 0.9% 10 ML Syringe FLUSH PRN (13:55)
[2023-01-10] MEDS: Enoxaparin 40 MG/0.4 ML Syringe SUBCUT SCH (13:57)
[2023-01-10] MEDS: Gabapentin 300 MG Cap PO SCH ×2 (13:57→20:56)
[2023-01-10 15:11] LABS: BASOPHILS ABSOLUTE AUTO 0.06 10^3/uL (0.00-0.10); BASOPHILS PERCENT AUTO 0.6 % (0.0-1.0); EOSINOPHILS ABSOLUTE AUTO 0.22 10^3/uL (0.10-0.30); EOSINOPHILS PERCENT AUTO 2.3 % (1.0-3.0); HEMATOCRIT 44.9 % (40.0-52.0); HEMOGLOBIN 14.4 g/dL (13.0-17.0); IMMATURE GRAN ABSOLUTE AUTO 0.02 10^3/uL (0.00-0.50); IMMATURE GRAN PERCENT AUTO 0.2 % (0.0-5.0); LYMPHOCYTES ABSOLUTE AUTO 2.94 10^3/uL (1.00-4.00); LYMPHOCYTES PERCENT AUTO 30.8 % (20.0-40.0); MEAN CORPUSCULAR HEMOGLOBIN 26.8 pg (27.0-31.0); MEAN CORPUSCULAR HGB CONC 32.1 g/dL (32.0-36.0); MEAN CORPUSCULAR VOLUME 83.5 fL (82.0-92.0); MEAN PLATELET VOLUME 9.6 fL (7.4-10.4); MONOCYTES ABSOLUTE AUTO 0.82 10^3/uL (0.10-0.80); MONOCYTES PERCENT AUTO 8.6 % (2.0-8.0); NEUTROPHILS ABSOLUTE AUTO 5.48 10^3/uL (2.50-7.00); NEUTROPHILS PERCENT AUTO 57.5 % (50.0-70.0); PLATELET COUNT,PLT 312 10^3/uL (150-400); RED BLOOD CELL COUNT 5.38 10^6/uL (4.50-6.00); RED CELL DISTRIBUTION WIDTH 14.5 % (11.5-14.5); WHITE BLOOD CELL COUNT,WBC 9.54 10^3/uL (5.00-10.00)
[2023-01-10 15:19] LABS: ALBUMIN 3.61 g/dL (3.40-5.00); ANION GAP 17.8 mmol/L (5-15); BILIRUBIN TOTAL 0.3 mg/dL (0.2-1.0); CALCIUM 9.1 mg/dL (8.7-10.3); CARBON DIOXIDE,CO2 24.3 mmol/L (21.0-32.0); CREATININE 1.03 mg/dL (0.51-1.17); EST CRCL DRUG DOSING (CG) 73.98 mL/min; POTASSIUM,K 4.1 mmol/L (3.5-5.1); PROTEIN TOTAL,TP 7.9 g/dL (6.4-8.2)
[2023-01-10] MEDS: Insulin Lispro 100 Unit/ML 3 ML KwikPen SUBCUT SCH (17:52)
[2023-01-10] MEDS: Tamsulosin 0.4 MG Cap.ER PO SCH (17:52)
[2023-01-10] MEDS: atorvaSTATin 40 MG Tab PO SCH (20:56)
[2023-01-10] MEDS: Melatonin 3 MG Tab PO PRN (20:56)
[2023-01-10] MEDS: Sennosides/Docusate Sodium 50-8.6 MG Tab PO SCH (20:57)
[2023-01-10] MEDS: Carvedilol 12.5 MG Tab PO SCH (20:57)
[2023-01-10] MEDS: Finasteride 5 MG Tab PO SCH (20:57)
[2023-01-10] MEDS: Cefadroxil 500 MG Cap PO SCH (20:57)
[2023-01-10] MEDS: Insulin Glargine,Hum.Rec.Anlog 100 UNIT/ML 3 ML Pen SUBCUT SCH (21:00)
[2023-01-11] MEDS: Insulin Lispro 100 Unit/ML 3 ML KwikPen SUBCUT SCH ×3 (09:01→18:02)
[2023-01-11] MEDS: Aspirin 81 MG Tab.EC PO SCH (09:03)
[2023-01-11] MEDS: Sertraline 50 MG Tab PO SCH (09:03)
[2023-01-11] MEDS: Cefadroxil 500 MG Cap PO SCH ×2 (09:03→20:13)
[2023-01-11] MEDS: Furosemide 40 MG Tab PO SCH (09:03)
[2023-01-11] MEDS: Gabapentin 300 MG Cap PO SCH ×3 (09:04→20:13)
[2023-01-11] MEDS: Sennosides/Docusate Sodium 50-8.6 MG Tab PO SCH ×2 (09:04→20:13)
[2023-01-11] MEDS: Clopidogrel 75 MG Tab PO SCH (09:04)
[2023-01-11] MEDS: Multivitamins with Minerals/Iron/Folic Acid/Lycopene Tab PO SCH (09:04)
[2023-01-11] MEDS: Empagliflozin 10 MG Tab PO SCH (09:04)
[2023-01-11] MEDS: Carvedilol 12.5 MG Tab PO SCH ×2 (09:05→20:14)
[2023-01-11] MEDS: Enoxaparin 40 MG/0.4 ML Syringe SUBCUT SCH (13:19)
[2023-01-11] MEDS: Tamsulosin 0.4 MG Cap.ER PO SCH (17:45)
[2023-01-11] MEDS: Insulin Glargine,Hum.Rec.Anlog 100 UNIT/ML 3 ML Pen SUBCUT SCH (20:11)
[2023-01-11] MEDS: atorvaSTATin 40 MG Tab PO SCH (20:13)
[2023-01-11] MEDS: Finasteride 5 MG Tab PO SCH (20:13)
[2023-01-11] MEDS: Melatonin 3 MG Tab PO PRN (20:14)
[2023-01-12] MEDS: Insulin Lispro 100 Unit/ML 3 ML KwikPen SUBCUT SCH ×3 (08:24→18:14)
[2023-01-12] MEDS: Multivitamins with Minerals/Iron/Folic Acid/Lycopene Tab PO SCH (08:36)
[2023-01-12] MEDS: Sertraline 50 MG Tab PO SCH (08:36)
[2023-01-12] MEDS: Empagliflozin 10 MG Tab PO SCH (08:36)
[2023-01-12] MEDS: Cefadroxil 500 MG Cap PO SCH ×2 (08:36→20:45)
[2023-01-12] MEDS: Gabapentin 300 MG Cap PO SCH ×3 (08:36→20:45)
[2023-01-12] MEDS: Clopidogrel 75 MG Tab PO SCH (08:36)
[2023-01-12] MEDS: Sennosides/Docusate Sodium 50-8.6 MG Tab PO SCH ×2 (08:37→20:45)
[2023-01-12] MEDS: Furosemide 40 MG Tab PO SCH (08:37)
[2023-01-12] MEDS: Aspirin 81 MG Tab.EC PO SCH (08:37)
[2023-01-12] MEDS: Carvedilol 12.5 MG Tab PO SCH ×2 (08:40→20:45)
[2023-01-12] MEDS: Enoxaparin 40 MG/0.4 ML Syringe SUBCUT SCH (18:13)
[2023-01-12] MEDS: Tamsulosin 0.4 MG Cap.ER PO SCH (18:14)
[2023-01-12] MEDS: Finasteride 5 MG Tab PO SCH (20:45)
[2023-01-12] MEDS: atorvaSTATin 40 MG Tab PO SCH (20:45)
[2023-01-12] MEDS: Melatonin 3 MG Tab PO PRN (20:45)
[2023-01-12] MEDS: Insulin Glargine,Hum.Rec.Anlog 100 UNIT/ML 3 ML Pen SUBCUT SCH (20:47)
[2023-01-13] MEDS: Insulin Lispro 100 Unit/ML 3 ML KwikPen SUBCUT SCH ×3 (07:55→17:51)
[2023-01-13] MEDS: Cefadroxil 500 MG Cap PO SCH ×2 (08:21→20:30)
[2023-01-13] MEDS: Sertraline 50 MG Tab PO SCH (08:21)
[2023-01-13] MEDS: Aspirin 81 MG Tab.EC PO SCH (08:21)
[2023-01-13] MEDS: Multivitamins with Minerals/Iron/Folic Acid/Lycopene Tab PO SCH (08:22)
[2023-01-13] MEDS: Sennosides/Docusate Sodium 50-8.6 MG Tab PO SCH ×2 (08:22→20:30)
[2023-01-13] MEDS: Gabapentin 300 MG Cap PO SCH ×3 (08:22→20:30)
[2023-01-13] MEDS: Furosemide 40 MG Tab PO SCH (08:22)
[2023-01-13] MEDS: Clopidogrel 75 MG Tab PO SCH (08:22)
[2023-01-13] MEDS: Carvedilol 12.5 MG Tab PO SCH ×2 (08:22→20:30)
[2023-01-13] MEDS: Empagliflozin 10 MG Tab PO SCH (08:22)
[2023-01-13] MEDS: Enoxaparin 40 MG/0.4 ML Syringe SUBCUT SCH (13:25)
[2023-01-13] MEDS: hydrOXYzine HCl 25 MG Tab PO PRN ×2 (14:19→22:05)
[2023-01-13] MEDS: Tamsulosin 0.4 MG Cap.ER PO SCH (17:47)
[2023-01-13] MEDS: Melatonin 3 MG Tab PO PRN (20:30)
[2023-01-13] MEDS: atorvaSTATin 40 MG Tab PO SCH (20:30)
[2023-01-13] MEDS: Finasteride 5 MG Tab PO SCH (20:30)
[2023-01-13] MEDS: Insulin Glargine,Hum.Rec.Anlog 100 UNIT/ML 3 ML Pen SUBCUT SCH (20:35)
[2023-01-14] MEDS: Cefadroxil 500 MG Cap PO SCH ×2 (08:00→20:31)
[2023-01-14] MEDS: Sennosides/Docusate Sodium 50-8.6 MG Tab PO SCH ×2 (08:00→20:30)
[2023-01-14] MEDS: hydrOXYzine HCl 25 MG Tab PO PRN ×2 (08:00→15:59)
[2023-01-14] MEDS: Furosemide 40 MG Tab PO SCH (08:00)
[2023-01-14] MEDS: Multivitamins with Minerals/Iron/Folic Acid/Lycopene Tab PO SCH (08:00)
[2023-01-14] MEDS: Gabapentin 300 MG Cap PO SCH ×3 (08:00→20:31)
[2023-01-14] MEDS: Carvedilol 12.5 MG Tab PO SCH ×2 (08:00→20:47)
[2023-01-14] MEDS: Aspirin 81 MG Tab.EC PO SCH (08:00)
[2023-01-14] MEDS: Clopidogrel 75 MG Tab PO SCH (08:00)
[2023-01-14] MEDS: Sertraline 50 MG Tab PO SCH (08:00)
[2023-01-14] MEDS: Insulin Lispro 100 Unit/ML 3 ML KwikPen SUBCUT SCH ×3 (08:01→17:46)
[2023-01-14] MEDS: Empagliflozin 10 MG Tab PO SCH (08:01)
[2023-01-14] MEDS: Enoxaparin 40 MG/0.4 ML Syringe SUBCUT SCH (14:09)
[2023-01-14] MEDS: Tamsulosin 0.4 MG Cap.ER PO SCH (17:46)
[2023-01-14] MEDS: Finasteride 5 MG Tab PO SCH (20:30)
[2023-01-14] MEDS: atorvaSTATin 40 MG Tab PO SCH (20:30)
[2023-01-14] MEDS: Insulin Glargine,Hum.Rec.Anlog 100 UNIT/ML 3 ML Pen SUBCUT SCH (20:47)
[2023-01-15] MEDS: Insulin Lispro 100 Unit/ML 3 ML KwikPen SUBCUT SCH ×3 (07:50→17:54)
[2023-01-15] MEDS: Sertraline 50 MG Tab PO SCH (08:29)
[2023-01-15] MEDS: hydrOXYzine HCl 25 MG Tab PO PRN ×2 (08:29→16:57)
[2023-01-15] MEDS: Sennosides/Docusate Sodium 50-8.6 MG Tab PO SCH ×2 (08:29→21:04)
[2023-01-15] MEDS: Carvedilol 12.5 MG Tab PO SCH ×2 (08:29→21:05)
[2023-01-15] MEDS: Gabapentin 300 MG Cap PO SCH ×3 (08:30→21:04)
[2023-01-15] MEDS: Multivitamins with Minerals/Iron/Folic Acid/Lycopene Tab PO SCH (08:30)
[2023-01-15] MEDS: Empagliflozin 10 MG Tab PO SCH (08:30)
[2023-01-15] MEDS: Clopidogrel 75 MG Tab PO SCH (08:30)
[2023-01-15] MEDS: Furosemide 40 MG Tab PO SCH (08:30)
[2023-01-15] MEDS: Cefadroxil 500 MG Cap PO SCH ×2 (08:31→21:05)
[2023-01-15] MEDS: Aspirin 81 MG Tab.EC PO SCH (08:31)
[2023-01-15] MEDS: Enoxaparin 40 MG/0.4 ML Syringe SUBCUT SCH (14:10)
[2023-01-15] MEDS: Tamsulosin 0.4 MG Cap.ER PO SCH (17:56)
[2023-01-15] MEDS: Finasteride 5 MG Tab PO SCH (21:04)
[2023-01-15] MEDS: atorvaSTATin 40 MG Tab PO SCH (21:05)
[2023-01-15] MEDS: Insulin Glargine,Hum.Rec.Anlog 100 UNIT/ML 3 ML Pen SUBCUT SCH (21:06)
[2023-01-15] MEDS: Melatonin 3 MG Tab PO PRN (21:13)
[2023-01-16] MEDS: hydrOXYzine HCl 25 MG Tab PO PRN ×3 (01:28→17:37)
[2023-01-16] MEDS: Insulin Lispro 100 Unit/ML 3 ML KwikPen SUBCUT SCH ×3 (07:54→17:52)
[2023-01-16] MEDS: Carvedilol 12.5 MG Tab PO SCH ×2 (09:20→20:17)
[2023-01-16] MEDS: Sertraline 50 MG Tab PO SCH (09:20)
[2023-01-16] MEDS: Cefadroxil 500 MG Cap PO SCH ×2 (09:20→20:16)
[2023-01-16] MEDS: Gabapentin 300 MG Cap PO SCH ×3 (09:21→20:16)
[2023-01-16] MEDS: Clopidogrel 75 MG Tab PO SCH (09:21)
[2023-01-16] MEDS: Empagliflozin 10 MG Tab PO SCH (09:21)
[2023-01-16] MEDS: Sennosides/Docusate Sodium 50-8.6 MG Tab PO SCH ×2 (09:21→20:17)
[2023-01-16] MEDS: Multivitamins with Minerals/Iron/Folic Acid/Lycopene Tab PO SCH (09:21)
[2023-01-16] MEDS: Aspirin 81 MG Tab.EC PO SCH (09:21)
[2023-01-16] MEDS: Furosemide 40 MG Tab PO SCH (09:22)
[2023-01-16] MEDS: Enoxaparin 40 MG/0.4 ML Syringe SUBCUT SCH (13:24)
[2023-01-16] MEDS: Tamsulosin 0.4 MG Cap.ER PO SCH (17:37)
[2023-01-16] MEDS: Melatonin 3 MG Tab PO PRN (20:16)
[2023-01-16] MEDS: atorvaSTATin 40 MG Tab PO SCH (20:17)
[2023-01-16] MEDS: Insulin Glargine,Hum.Rec.Anlog 100 UNIT/ML 3 ML Pen SUBCUT SCH (20:17)
[2023-01-16] MEDS: Finasteride 5 MG Tab PO SCH (20:17)
[2023-01-17 07:24] LABS: BASOPHILS ABSOLUTE AUTO 0.07 10^3/uL (0.00-0.10); BASOPHILS PERCENT AUTO 0.9 % (0.0-1.0); EOSINOPHILS ABSOLUTE AUTO 0.26 10^3/uL (0.10-0.30); EOSINOPHILS PERCENT AUTO 3.4 % (1.0-3.0); HEMATOCRIT 47.1 % (40.0-52.0); HEMOGLOBIN 15.2 g/dL (13.0-17.0); IMMATURE GRAN ABSOLUTE AUTO 0.01 10^3/uL (0.00-0.50); IMMATURE GRAN PERCENT AUTO 0.1 % (0.0-5.0); LYMPHOCYTES PERCENT AUTO 35.6 % (20.0-40.0); MEAN CORPUSCULAR HGB CONC 32.3 g/dL (32.0-36.0); MEAN CORPUSCULAR VOLUME 83.7 fL (82.0-92.0); MEAN PLATELET VOLUME 8.7 fL (7.4-10.4); MONOCYTES ABSOLUTE AUTO 0.65 10^3/uL (0.10-0.80); MONOCYTES PERCENT AUTO 8.6 % (2.0-8.0); NEUTROPHILS ABSOLUTE AUTO 3.89 10^3/uL (2.50-7.00); NEUTROPHILS PERCENT AUTO 51.4 % (50.0-70.0); PLATELET COUNT,PLT 270 10^3/uL (150-400); RED BLOOD CELL COUNT 5.63 10^6/uL (4.50-6.00); RED CELL DISTRIBUTION WIDTH 14.4 % (11.5-14.5); WHITE BLOOD CELL COUNT,WBC 7.58 10^3/uL (5.00-10.00)
[2023-01-17] MEDS: Insulin Lispro 100 Unit/ML 3 ML KwikPen SUBCUT SCH ×3 (07:33→17:44)
[2023-01-17] MEDS: hydrOXYzine HCl 25 MG Tab PO PRN ×2 (07:34→20:21)
[2023-01-17 07:42] LABS: ANION GAP 11.9 mmol/L (5-15); CALCIUM 9.1 mg/dL (8.7-10.3); CARBON DIOXIDE,CO2 28.3 mmol/L (21.0-32.0); CREATININE 1.16 mg/dL (0.51-1.17); EST CRCL DRUG DOSING (CG) 65.69 mL/min; MAGNESIUM 2.1 mg/dL (1.8-2.4); POTASSIUM,K 4.2 mmol/L (3.5-5.1)
[2023-01-17] MEDS: Sertraline 50 MG Tab PO SCH (08:19)
[2023-01-17] MEDS: Gabapentin 300 MG Cap PO SCH ×3 (08:19→20:21)
[2023-01-17] MEDS: Cefadroxil 500 MG Cap PO SCH ×2 (08:19→20:21)
[2023-01-17] MEDS: Carvedilol 12.5 MG Tab PO SCH ×2 (08:19→20:33)
[2023-01-17] MEDS: Empagliflozin 10 MG Tab PO SCH (08:19)
[2023-01-17] MEDS: Furosemide 40 MG Tab PO SCH (08:20)
[2023-01-17] MEDS: Multivitamins with Minerals/Iron/Folic Acid/Lycopene Tab PO SCH (08:20)
[2023-01-17] MEDS: Clopidogrel 75 MG Tab PO SCH (08:20)
[2023-01-17] MEDS: Aspirin 81 MG Tab.EC PO SCH (08:20)
[2023-01-17] MEDS: Sennosides/Docusate Sodium 50-8.6 MG Tab PO SCH ×2 (08:20→20:21)
[2023-01-17] MEDS: Enoxaparin 40 MG/0.4 ML Syringe SUBCUT SCH (13:29)
[2023-01-17] MEDS: Tamsulosin 0.4 MG Cap.ER PO SCH (17:34)
[2023-01-17] MEDS: Melatonin 3 MG Tab PO PRN (20:21)
[2023-01-17] MEDS: atorvaSTATin 40 MG Tab PO SCH (20:21)
[2023-01-17] MEDS: Finasteride 5 MG Tab PO SCH (20:21)
[2023-01-17] MEDS: Insulin Glargine,Hum.Rec.Anlog 100 UNIT/ML 3 ML Pen SUBCUT SCH (20:31)
[2023-01-18] MEDS: Insulin Lispro 100 Unit/ML 3 ML KwikPen SUBCUT SCH ×3 (08:28→17:59)
[2023-01-18] MEDS: Clopidogrel 75 MG Tab PO SCH (08:29)
[2023-01-18] MEDS: Aspirin 81 MG Tab.EC PO SCH (08:30)
[2023-01-18] MEDS: Sennosides/Docusate Sodium 50-8.6 MG Tab PO SCH ×2 (08:30→20:35)
[2023-01-18] MEDS: Empagliflozin 10 MG Tab PO SCH (08:30)
[2023-01-18] MEDS: Carvedilol 12.5 MG Tab PO SCH ×2 (08:31→20:35)
[2023-01-18] MEDS: Cefadroxil 500 MG Cap PO SCH ×2 (08:32→20:35)
[2023-01-18] MEDS: Furosemide 40 MG Tab PO SCH (08:33)
[2023-01-18] MEDS: Gabapentin 300 MG Cap PO SCH ×3 (08:33→20:35)
[2023-01-18] MEDS: Sertraline 50 MG Tab PO SCH (08:33)
[2023-01-18] MEDS: Multivitamins with Minerals/Iron/Folic Acid/Lycopene Tab PO SCH (08:34)
[2023-01-18] MEDS: hydrOXYzine HCl 25 MG Tab PO PRN ×2 (08:36→20:35)
[2023-01-18] MEDS: Enoxaparin 40 MG/0.4 ML Syringe SUBCUT SCH (14:09)
[2023-01-18] MEDS: Tamsulosin 0.4 MG Cap.ER PO SCH (18:00)
[2023-01-18] MEDS: Melatonin 3 MG Tab PO PRN (20:34)
[2023-01-18] MEDS: atorvaSTATin 40 MG Tab PO SCH (20:34)
[2023-01-18] MEDS: Finasteride 5 MG Tab PO SCH (20:35)
[2023-01-18] MEDS: Insulin Glargine,Hum.Rec.Anlog 100 UNIT/ML 3 ML Pen SUBCUT SCH (20:38)
[2023-01-19] MEDS: hydrOXYzine HCl 25 MG Tab PO PRN ×3 (04:23→20:19)
[2023-01-19] MEDS: Insulin Lispro 100 Unit/ML 3 ML KwikPen SUBCUT SCH ×3 (07:49→17:48)
[2023-01-19] MEDS: Aspirin 81 MG Tab.EC PO SCH (08:01)
[2023-01-19] MEDS: Cefadroxil 500 MG Cap PO SCH ×2 (08:01→20:18)
[2023-01-19] MEDS: Gabapentin 300 MG Cap PO SCH ×3 (08:01→20:17)
[2023-01-19] MEDS: Clopidogrel 75 MG Tab PO SCH (08:01)
[2023-01-19] MEDS: Multivitamins with Minerals/Iron/Folic Acid/Lycopene Tab PO SCH (08:02)
[2023-01-19] MEDS: Sennosides/Docusate Sodium 50-8.6 MG Tab PO SCH ×2 (08:02→20:18)
[2023-01-19] MEDS: Furosemide 40 MG Tab PO SCH (08:02)
[2023-01-19] MEDS: Carvedilol 12.5 MG Tab PO SCH ×2 (08:02→20:17)
[2023-01-19] MEDS: Empagliflozin 10 MG Tab PO SCH (08:02)
[2023-01-19] MEDS: Sertraline 50 MG Tab PO SCH (08:02)
[2023-01-19] MEDS: Enoxaparin 40 MG/0.4 ML Syringe SUBCUT SCH (12:48)
[2023-01-19] MEDS: Tamsulosin 0.4 MG Cap.ER PO SCH (17:44)
[2023-01-19] MEDS: Melatonin 3 MG Tab PO PRN (20:18)
[2023-01-19] MEDS: atorvaSTATin 40 MG Tab PO SCH (20:18)
[2023-01-19] MEDS: Finasteride 5 MG Tab PO SCH (20:18)
[2023-01-19] MEDS: Insulin Glargine,Hum.Rec.Anlog 100 UNIT/ML 3 ML Pen SUBCUT SCH (20:19)
[2023-01-20] MEDS: hydrOXYzine HCl 25 MG Tab PO PRN ×2 (04:47→20:06)
[2023-01-20] MEDS: Insulin Lispro 100 Unit/ML 3 ML KwikPen SUBCUT SCH ×3 (08:26→18:08)
[2023-01-20] MEDS: Sennosides/Docusate Sodium 50-8.6 MG Tab PO SCH ×2 (09:24→20:06)
[2023-01-20] MEDS: Aspirin 81 MG Tab.EC PO SCH (09:24)
[2023-01-20] MEDS: Multivitamins with Minerals/Iron/Folic Acid/Lycopene Tab PO SCH (09:24)
[2023-01-20] MEDS: Carvedilol 12.5 MG Tab PO SCH ×2 (09:24→20:08)
[2023-01-20] MEDS: Furosemide 40 MG Tab PO SCH (09:24)
[2023-01-20] MEDS: Clopidogrel 75 MG Tab PO SCH (09:24)
[2023-01-20] MEDS: Cefadroxil 500 MG Cap PO SCH ×2 (09:25→20:06)
[2023-01-20] MEDS: Gabapentin 300 MG Cap PO SCH ×3 (09:25→20:06)
[2023-01-20] MEDS: Empagliflozin 10 MG Tab PO SCH (09:25)
[2023-01-20] MEDS: Sertraline 50 MG Tab PO SCH (09:25)
[2023-01-20] MEDS: Enoxaparin 40 MG/0.4 ML Syringe SUBCUT SCH (13:16)
[2023-01-20] MEDS: Tamsulosin 0.4 MG Cap.ER PO SCH (17:58)
[2023-01-20] MEDS: Finasteride 5 MG Tab PO SCH (20:06)
[2023-01-20] MEDS: atorvaSTATin 40 MG Tab PO SCH (20:06)
[2023-01-20] MEDS: Insulin Glargine,Hum.Rec.Anlog 100 UNIT/ML 3 ML Pen SUBCUT SCH (20:06)
[2023-01-20] MEDS: Melatonin 3 MG Tab PO PRN (20:07)
[2023-01-21] MEDS: Insulin Lispro 100 Unit/ML 3 ML KwikPen SUBCUT SCH ×3 (07:53→17:33)
[2023-01-21] MEDS: Aspirin 81 MG Tab.EC PO SCH (08:26)
[2023-01-21] MEDS: Sennosides/Docusate Sodium 50-8.6 MG Tab PO SCH ×2 (08:26→20:51)
[2023-01-21] MEDS: Cefadroxil 500 MG Cap PO SCH ×2 (08:26→20:56)
[2023-01-21] MEDS: Sertraline 50 MG Tab PO SCH (08:26)
[2023-01-21] MEDS: Clopidogrel 75 MG Tab PO SCH (08:27)
[2023-01-21] MEDS: Gabapentin 300 MG Cap PO SCH ×3 (08:27→20:55)
[2023-01-21] MEDS: Carvedilol 12.5 MG Tab PO SCH ×2 (08:27→20:51)
[2023-01-21] MEDS: Multivitamins with Minerals/Iron/Folic Acid/Lycopene Tab PO SCH (08:27)
[2023-01-21] MEDS: Furosemide 40 MG Tab PO SCH (08:27)
[2023-01-21] MEDS: Empagliflozin 10 MG Tab PO SCH (08:27)
[2023-01-21] MEDS: hydrOXYzine HCl 25 MG Tab PO PRN ×2 (11:34→20:59)
[2023-01-21] MEDS: Enoxaparin 40 MG/0.4 ML Syringe SUBCUT SCH (13:40)
[2023-01-21] MEDS: Tamsulosin 0.4 MG Cap.ER PO SCH (17:29)
[2023-01-21] MEDS: Finasteride 5 MG Tab PO SCH (20:54)
[2023-01-21] MEDS: atorvaSTATin 40 MG Tab PO SCH (20:54)
[2023-01-21] MEDS: Insulin Glargine,Hum.Rec.Anlog 100 UNIT/ML 3 ML Pen SUBCUT SCH (20:56)
[2023-01-21] MEDS: Melatonin 3 MG Tab PO PRN (20:58)
[2023-01-22] MEDS: hydrOXYzine HCl 25 MG Tab PO PRN ×3 (06:01→22:12)
[2023-01-22] MEDS: Insulin Lispro 100 Unit/ML 3 ML KwikPen SUBCUT SCH ×3 (07:58→19:05)
[2023-01-22] MEDS: Cefadroxil 500 MG Cap PO SCH ×2 (08:27→20:20)
[2023-01-22] MEDS: Gabapentin 300 MG Cap PO SCH ×3 (08:27→20:30)
[2023-01-22] MEDS: Multivitamins with Minerals/Iron/Folic Acid/Lycopene Tab PO SCH (08:28)
[2023-01-22] MEDS: Aspirin 81 MG Tab.EC PO SCH (08:28)
[2023-01-22] MEDS: Sertraline 50 MG Tab PO SCH (08:28)
[2023-01-22] MEDS: Sennosides/Docusate Sodium 50-8.6 MG Tab PO SCH ×2 (08:28→20:21)
[2023-01-22] MEDS: Furosemide 40 MG Tab PO SCH (08:28)
[2023-01-22] MEDS: Carvedilol 12.5 MG Tab PO SCH ×2 (08:28→20:48)
[2023-01-22] MEDS: Empagliflozin 10 MG Tab PO SCH (08:28)
[2023-01-22] MEDS: Clopidogrel 75 MG Tab PO SCH (08:28)
[2023-01-22] MEDS: Enoxaparin 40 MG/0.4 ML Syringe SUBCUT SCH (14:06)
[2023-01-22] MEDS: Tamsulosin 0.4 MG Cap.ER PO SCH (18:22)
[2023-01-22] MEDS: atorvaSTATin 40 MG Tab PO SCH (20:20)
[2023-01-22] MEDS: Finasteride 5 MG Tab PO SCH (20:21)
[2023-01-22] MEDS: Melatonin 3 MG Tab PO PRN (20:21)
[2023-01-22] MEDS: Insulin Glargine,Hum.Rec.Anlog 100 UNIT/ML 3 ML Pen SUBCUT SCH (20:48)
[2023-01-23] MEDS: Furosemide 40 MG Tab PO SCH (08:47)
[2023-01-23] MEDS: Sertraline 50 MG Tab PO SCH (08:47)
[2023-01-23] MEDS: Clopidogrel 75 MG Tab PO SCH (08:47)
[2023-01-23] MEDS: Sennosides/Docusate Sodium 50-8.6 MG Tab PO SCH ×2 (08:47→20:00)
[2023-01-23] MEDS: Cefadroxil 500 MG Cap PO SCH ×2 (08:47→20:00)
[2023-01-23] MEDS: Carvedilol 12.5 MG Tab PO SCH ×2 (08:47→20:49)
[2023-01-23] MEDS: Gabapentin 300 MG Cap PO SCH ×3 (08:48→20:00)
[2023-01-23] MEDS: Aspirin 81 MG Tab.EC PO SCH (08:48)
[2023-01-23] MEDS: Multivitamins with Minerals/Iron/Folic Acid/Lycopene Tab PO SCH (08:48)
[2023-01-23] MEDS: Empagliflozin 10 MG Tab PO SCH (08:48)
[2023-01-23] MEDS: Insulin Lispro 100 Unit/ML 3 ML KwikPen SUBCUT SCH ×3 (08:48→17:52)
[2023-01-23] MEDS: Enoxaparin 40 MG/0.4 ML Syringe SUBCUT SCH (13:55)
[2023-01-23] MEDS: hydrOXYzine HCl 25 MG Tab PO PRN ×2 (13:59→21:41)
[2023-01-23] MEDS: Tamsulosin 0.4 MG Cap.ER PO SCH (17:52)
[2023-01-23] MEDS: atorvaSTATin 40 MG Tab PO SCH (20:01)
[2023-01-23] MEDS: Finasteride 5 MG Tab PO SCH (20:01)
[2023-01-23] MEDS: Insulin Glargine,Hum.Rec.Anlog 100 UNIT/ML 3 ML Pen SUBCUT SCH (20:45)
[2023-01-23] MEDS: Melatonin 3 MG Tab PO PRN (20:49)
[2023-01-24] MEDS: hydrOXYzine HCl 25 MG Tab PO PRN ×3 (05:44→20:49)
[2023-01-24] MEDS: Insulin Lispro 100 Unit/ML 3 ML KwikPen SUBCUT SCH ×3 (07:43→18:03)
[2023-01-24] MEDS: Multivitamins with Minerals/Iron/Folic Acid/Lycopene Tab PO SCH (08:27)
[2023-01-24] MEDS: Sertraline 50 MG Tab PO SCH (08:27)
[2023-01-24] MEDS: Aspirin 81 MG Tab.EC PO SCH (08:27)
[2023-01-24] MEDS: Gabapentin 300 MG Cap PO SCH ×3 (08:27→20:48)
[2023-01-24] MEDS: Furosemide 40 MG Tab PO SCH (08:28)
[2023-01-24] MEDS: Sennosides/Docusate Sodium 50-8.6 MG Tab PO SCH ×2 (08:28→20:48)
[2023-01-24] MEDS: Clopidogrel 75 MG Tab PO SCH (08:28)
[2023-01-24] MEDS: Empagliflozin 10 MG Tab PO SCH (08:28)
[2023-01-24] MEDS: Cefadroxil 500 MG Cap PO SCH ×2 (08:28→20:49)
[2023-01-24] MEDS: Carvedilol 12.5 MG Tab PO SCH ×2 (08:56→21:07)
[2023-01-24] MEDS: Enoxaparin 40 MG/0.4 ML Syringe SUBCUT SCH (13:12)
[2023-01-24] MEDS: Tamsulosin 0.4 MG Cap.ER PO SCH (17:13)
[2023-01-24] MEDS: Melatonin 3 MG Tab PO PRN (20:48)
[2023-01-24] MEDS: atorvaSTATin 40 MG Tab PO SCH (20:49)
[2023-01-24] MEDS: Finasteride 5 MG Tab PO SCH (20:49)
[2023-01-24] MEDS: Insulin Glargine,Hum.Rec.Anlog 100 UNIT/ML 3 ML Pen SUBCUT SCH (21:08)
[2023-01-25] MEDS: Insulin Lispro 100 Unit/ML 3 ML KwikPen SUBCUT SCH ×3 (07:44→17:27)
[2023-01-25] MEDS: Carvedilol 12.5 MG Tab PO SCH ×2 (08:29→21:24)
[2023-01-25] MEDS: Multivitamins with Minerals/Iron/Folic Acid/Lycopene Tab PO SCH (08:29)
[2023-01-25] MEDS: Furosemide 40 MG Tab PO SCH (08:29)
[2023-01-25] MEDS: Clopidogrel 75 MG Tab PO SCH (08:29)
[2023-01-25] MEDS: Aspirin 81 MG Tab.EC PO SCH (08:29)
[2023-01-25] MEDS: Cefadroxil 500 MG Cap PO SCH ×2 (08:29→21:23)
[2023-01-25] MEDS: Gabapentin 300 MG Cap PO SCH ×3 (08:29→21:24)
[2023-01-25] MEDS: Sennosides/Docusate Sodium 50-8.6 MG Tab PO SCH ×2 (08:29→21:23)
[2023-01-25] MEDS: Empagliflozin 10 MG Tab PO SCH (08:30)
[2023-01-25] MEDS: Sertraline 50 MG Tab PO SCH (08:30)
[2023-01-25] MEDS: hydrOXYzine HCl 25 MG Tab PO PRN ×2 (10:42→21:23)
[2023-01-25] MEDS: Enoxaparin 40 MG/0.4 ML Syringe SUBCUT SCH (13:00)
[2023-01-25] MEDS: Tamsulosin 0.4 MG Cap.ER PO SCH (17:21)
[2023-01-25] MEDS: ALPRAZolam 0.25 MG Tab PO PRN (17:22)
[2023-01-25] MEDS: Insulin Glargine,Hum.Rec.Anlog 100 UNIT/ML 3 ML Pen SUBCUT SCH (21:21)
[2023-01-25] MEDS: atorvaSTATin 40 MG Tab PO SCH (21:23)
[2023-01-25] MEDS: Melatonin 3 MG Tab PO PRN (21:23)
[2023-01-25] MEDS: Finasteride 5 MG Tab PO SCH (21:24)
[2023-01-26] MEDS: ALPRAZolam 0.25 MG Tab PO PRN ×2 (01:51→20:30)
[2023-01-26] MEDS: Insulin Lispro 100 Unit/ML 3 ML KwikPen SUBCUT SCH ×3 (07:27→17:28)
[2023-01-26] MEDS: Aspirin 81 MG Tab.EC PO SCH (08:05)
[2023-01-26] MEDS: Gabapentin 300 MG Cap PO SCH ×3 (08:05→20:30)
[2023-01-26] MEDS: Cefadroxil 500 MG Cap PO SCH ×2 (08:05→20:30)
[2023-01-26] MEDS: Sennosides/Docusate Sodium 50-8.6 MG Tab PO SCH ×2 (08:05→20:31)
[2023-01-26] MEDS: Multivitamins with Minerals/Iron/Folic Acid/Lycopene Tab PO SCH (08:05)
[2023-01-26] MEDS: Clopidogrel 75 MG Tab PO SCH (08:05)
[2023-01-26] MEDS: Sertraline 50 MG Tab PO SCH (08:05)
[2023-01-26] MEDS: Furosemide 40 MG Tab PO SCH (08:05)
[2023-01-26] MEDS: Carvedilol 12.5 MG Tab PO SCH ×2 (08:06→20:30)
[2023-01-26] MEDS: Empagliflozin 10 MG Tab PO SCH (08:06)
[2023-01-26] MEDS: Enoxaparin 40 MG/0.4 ML Syringe SUBCUT SCH (13:50)
[2023-01-26] MEDS: hydrOXYzine HCl 25 MG Tab PO PRN (13:54)
[2023-01-26] MEDS: Tamsulosin 0.4 MG Cap.ER PO SCH (17:20)
[2023-01-26] MEDS: Insulin Glargine,Hum.Rec.Anlog 100 UNIT/ML 3 ML Pen SUBCUT SCH (20:28)
[2023-01-26] MEDS: atorvaSTATin 40 MG Tab PO SCH (20:30)
[2023-01-26] MEDS: Finasteride 5 MG Tab PO SCH (20:31)
[2023-01-26] MEDS: Melatonin 3 MG Tab PO PRN (20:31)
[2023-01-27] MEDS: ALPRAZolam 0.25 MG Tab PO PRN (05:06)
[2023-01-27] MEDS: Insulin Lispro 100 Unit/ML 3 ML KwikPen SUBCUT SCH (07:31)
[2023-01-27] MEDS: Empagliflozin 10 MG Tab PO SCH (08:00)
[2023-01-27] MEDS: Furosemide 40 MG Tab PO SCH (08:00)
[2023-01-27] MEDS: Gabapentin 300 MG Cap PO SCH (08:00)
[2023-01-27] MEDS: Clopidogrel 75 MG Tab PO SCH (08:01)
[2023-01-27] MEDS: Cefadroxil 500 MG Cap PO SCH (08:01)
[2023-01-27] MEDS: Aspirin 81 MG Tab.EC PO SCH (08:01)
[2023-01-27] MEDS: Multivitamins with Minerals/Iron/Folic Acid/Lycopene Tab PO SCH (08:02)
[2023-01-27] MEDS: Sertraline 50 MG Tab PO SCH (08:02)
[2023-01-27] MEDS: Carvedilol 12.5 MG Tab PO SCH (08:02)
[2023-01-27] MEDS: Sennosides/Docusate Sodium 50-8.6 MG Tab PO SCH (08:02)
[2023-01-27 08:03] VITALS: BP 108/70; PULSE 88
== END 2023-01-27 08:50 | disposition home or self-care (01) | DRG 948 ==
LOC: KA.MS 09:15
PROVIDERS: ADMIT Family Medicine; ATTEND Family Medicine
DX: R53.81 Other malaise (principal); I25.810 Atherosclerosis of coronary artery bypass graft(s) without angina pectoris; I50.42 Chronic combined systolic (congestive) and diastolic (congestive) heart failure; E11.621 Type 2 diabetes mellitus with foot ulcer; L97.519 Non-pressure chronic ulcer of other part of right foot with unspecified severity; J45.909 Unspecified asthma, uncomplicated; F41.9 Anxiety disorder, unspecified; E66.9 Obesity, unspecified; E11.22 Type 2 diabetes mellitus with diabetic chronic kidney disease; N18.9 Chronic kidney disease, unspecified; E11.69 Type 2 diabetes mellitus with other specified complication; I11.0 Hypertensive heart disease with heart failure; E11.49 Type 2 diabetes mellitus with other diabetic neurological complication; G47.9 Sleep disorder, unspecified; F32.9 Major depressive disorder, single episode, unspecified; R33.9 Retention of urine, unspecified; K59.00 Constipation, unspecified; D72.829 Elevated white blood cell count, unspecified; E11.40 Type 2 diabetes mellitus with diabetic neuropathy, unspecified; G47.00 Insomnia, unspecified; Z97.8 Presence of other specified devices; Z79.82 Long term (current) use of aspirin; Z79.02 Long term (current) use of antithrombotics/antiplatelets; Z79.4 Long term (current) use of insulin; Z79.899 Other long term (current) drug therapy; I25.2 Old myocardial infarction; Z95.5 Presence of coronary angioplasty implant and graft; Z68.38 Body mass index [BMI] 38.0-38.9, adult
CPT/HCPCS: 36415; 51702; 80048; 80053; 80061; 82947; 83036; 83605; 83735; 84443; 85025; 85652; 86140; 97605; A9270-GY; J1650; J1815-GY; Q3014

== ENCOUNTER 2023-08-26 20:00 | Emergency (ER) | payer OTHER ==
[2023-08-26] MEDS ORDERED: Sodium Chloride 0.9% 10 ML Syringe FLUSH PRN (20:16)
[2023-08-26 20:23] LABS: BASOPHILS ABSOLUTE AUTO 0.05 10^3/uL (0.00-0.10); BASOPHILS PERCENT AUTO 0.8 % (0.0-1.0); EOSINOPHILS ABSOLUTE AUTO 0.01 10^3/uL (0.10-0.30); EOSINOPHILS PERCENT AUTO 0.2 % (1.0-3.0); HEMATOCRIT 43.1 % (40.0-52.0); HEMOGLOBIN 14.7 g/dL (13.0-17.0); IMMATURE GRAN ABSOLUTE AUTO 0.01 10^3/uL (0.00-0.50); IMMATURE GRAN PERCENT AUTO 0.2 % (0.0-5.0); LYMPHOCYTES ABSOLUTE AUTO 0.65 10^3/uL (1.00-4.00); LYMPHOCYTES PERCENT AUTO 10.9 % (20.0-40.0); MEAN CORPUSCULAR HEMOGLOBIN 27.9 pg (27.0-31.0); MEAN CORPUSCULAR HGB CONC 34.1 g/dL (32.0-36.0); MEAN CORPUSCULAR VOLUME 81.8 fL (82.0-92.0); MEAN PLATELET VOLUME 9.1 fL (7.4-10.4); MONOCYTES ABSOLUTE AUTO 0.86 10^3/uL (0.10-0.80); MONOCYTES PERCENT AUTO 14.5 % (2.0-8.0); NEUTROPHILS ABSOLUTE AUTO 4.36 10^3/uL (2.50-7.00); NEUTROPHILS PERCENT AUTO 73.4 % (50.0-70.0); PLATELET COUNT,PLT 247 10^3/uL (150-400); RED BLOOD CELL COUNT 5.27 10^6/uL (4.50-6.00); RED CELL DISTRIBUTION WIDTH 13.3 % (11.5-14.5); WHITE BLOOD CELL COUNT,WBC 5.94 10^3/uL (5.00-10.00)
[2023-08-26 20:40] LABS: ALANINE AMINOTRANSFERASE,ALT 21 U/L (14-63); ALBUMIN 2.92 g/dL (3.40-5.00); ALKALINE PHOSPHATASE 91 U/L (46-116); ANION GAP 13.8 mmol/L (5-15); ASPARTATE AMNIOTRANSFERASE,AST 13 U/L (15-37); BILIRUBIN TOTAL 0.5 mg/dL (0.2-1.0); BLOOD UREA NITROGEN,BUN 17 mg/dL (7-18); CALCIUM 8.3 mg/dL (8.7-10.3); CARBON DIOXIDE,CO2 27.3 mmol/L (21.0-32.0); CHLORIDE,CL 97 mmol/L (98-107); CREATININE 0.98 mg/dL (0.51-1.17); POTASSIUM,K 4.1 mmol/L (3.5-5.1); PROTEIN TOTAL,TP 6.8 g/dL (6.4-8.2); SODIUM,NA 134 mmol/L (136-145)
[2023-08-26 20:42] LABS: LACTIC ACID 0.9 mmol/L (0.4-2.0)
[2023-08-26] MEDS: methylPREDNISolone Sodium Succinate 125 MG/2 ML SDV IVPUSH ONE (20:43)
[2023-08-26] MEDS: Sodium Chloride 0.9% 1,000 ML IV ONE (20:44)
[2023-08-26 20:46] LABS: B-TYPE NATRIURETIC PEPTIDE,BNP 351 pg/mL (0-100)
[2023-08-26 20:47] LABS: GLUCOSE RANDOM 307 mg/dL (70-140)
[2023-08-26 20:49] LABS: ESTIMATED GFR 90 mL/min (>=60)
[2023-08-26 21:04] LABS: CORONAVIRUS COVID-19 NAA NEGATIVE (NEGATIVE); INFLUENZA A NAA NEGATIVE (NEGATIVE); INFLUENZA B NAA POSITIVE (NEGATIVE); RESPIRATORY SYNCYTIAL VIR NAA NEGATIVE (NEGATIVE)
[2023-08-26] MEDS: Oseltamivir 75 MG Cap PO ONE (21:36)
[2023-08-26] MEDS: Benzonatate 100 MG Cap PO ONE (21:36)
[2023-08-27] MEDS ORDERED: Benzonatate 100 MG Cap PO SCH (09:00)
== END 2023-08-26 21:45 | disposition home or self-care (01) ==
LOC: KA.ED 20:00
DX: J10.1 Influenza due to other identified influenza virus with other respiratory manifestations (principal); I25.2 Old myocardial infarction; E11.69 Type 2 diabetes mellitus with other specified complication; E66.9 Obesity, unspecified; Z79.82 Long term (current) use of aspirin; Z95.5 Presence of coronary angioplasty implant and graft; Z79.899 Other long term (current) drug therapy; Z79.4 Long term (current) use of insulin; Z68.42 Body mass index [BMI] 45.0-49.9, adult
CPT/HCPCS: 0241U; 36415; 71045; 80053; 83605; 83880; 84484; 85025; 93010; 96361; 96374; 99284; 99285-25; A9270-GY; J2930; J7030

== ENCOUNTER 2023-08-29 06:16 | Inpatient (IN) | payer OTHER ==
[2023-08-29] MEDS ORDERED: Sodium Chloride 0.9% 10 ML Syringe FLUSH PRN ×2 (06:30→06:47)
[2023-08-29] MEDS: Albuterol/Ipratropium 3.0-0.5 MG/3 ML Neb Soln NEB ONE ×2 (06:57→09:48)
[2023-08-29] MEDS: Metoprolol Tartrate 5 MG/5 ML SDV IVPUSH ONE (06:59)
[2023-08-29] MEDS: Sodium Chloride 0.9% 1,000 ML IV ONE (07:19)
[2023-08-29] MEDS: Insulin Regular, Human 100 Units/ML 10 ML Vial IV ONE ×2 (07:23→12:46)
[2023-08-29] MEDS: hydrALAZINE 20 MG/ML SDV IVPUSH ONE ×2 (08:22→12:23)
[2023-08-29 08:25] LABS: BASOPHILS ABSOLUTE AUTO 0.04 10^3/uL (0.00-0.10); BASOPHILS PERCENT AUTO 0.5 % (0.0-1.0); EOSINOPHILS ABSOLUTE AUTO 0.05 10^3/uL (0.10-0.30); EOSINOPHILS PERCENT AUTO 0.6 % (1.0-3.0); HEMATOCRIT 49.2 % (40.0-52.0); HEMOGLOBIN 16.6 g/dL (13.0-17.0); IMMATURE GRAN ABSOLUTE AUTO 0.02 10^3/uL (0.00-0.50); IMMATURE GRAN PERCENT AUTO 0.2 % (0.0-5.0); LYMPHOCYTES ABSOLUTE AUTO 0.85 10^3/uL (1.00-4.00); LYMPHOCYTES PERCENT AUTO 10.6 % (20.0-40.0); MEAN CORPUSCULAR HEMOGLOBIN 27.2 pg (27.0-31.0); MEAN CORPUSCULAR HGB CONC 33.7 g/dL (32.0-36.0); MEAN CORPUSCULAR VOLUME 80.7 fL (82.0-92.0); MEAN PLATELET VOLUME 9.5 fL (7.4-10.4); MONOCYTES ABSOLUTE AUTO 0.73 10^3/uL (0.10-0.80); MONOCYTES PERCENT AUTO 9.1 % (2.0-8.0); NEUTROPHILS ABSOLUTE AUTO 6.36 10^3/uL (2.50-7.00); PLATELET COUNT,PLT 282 10^3/uL (150-400); RED CELL DISTRIBUTION WIDTH 13.3 % (11.5-14.5); WHITE BLOOD CELL COUNT,WBC 8.05 10^3/uL (5.00-10.00)
[2023-08-29 09:08] LABS: ALBUMIN 3.11 g/dL (3.40-5.00); ANION GAP 15.4 mmol/L (5-15); BILIRUBIN TOTAL 0.5 mg/dL (0.2-1.0); C-REACTIVE PROTEIN 1.63 mg/dL (0.00-0.50); CALCIUM 8.6 mg/dL (8.7-10.3); CREATININE 0.9 mg/dL (0.51-1.17); EST CRCL DRUG DOSING (CG) 86.14 mL/min; POTASSIUM,K 4.4 mmol/L (3.5-5.1); PROTEIN TOTAL,TP 7.3 g/dL (6.4-8.2)
[2023-08-29 09:12] LABS: APPEARANCE,URINE CLEAR (CLEAR); BILIRUBIN,URINE NEGATIVE (NEGATIVE); COLOR,URINE YELLOW (YELLOW); GLUCOSE,URINE >=1000 mg/dL (NEGATIVE); KETONES,URINE NEGATIVE (NEGATIVE); LEUKOCYTE ESTERASE,URINE NEGATIVE (NEGATIVE); NITRITE,URINE POSITIVE (NEGATIVE); PH,URINE 5.5 (5.0-9.0); PROTEIN,URINE >=300 mg/dL (NEGATIVE); UROBILINOGEN,URINE 0.2 E.U./dL (0.2-1.0)
[2023-08-29 09:13] LABS: OCCULT BLOOD,URINE SMALL (NEGATIVE)
[2023-08-29 09:14] LABS: BACTERIA,URINE FEW /HPF (NONE TO FEW); EPITHELIAL CELLS,URINE OCCASIONAL /LPF; GRANULAR CASTS,URINE RARE; WBC,URINE 0-5 /HPF (0-5)
[2023-08-29 09:15] LABS: HYALINE CASTS,URINE OCCASIONAL; YEAST,URINE RARE /HPF (NEGATIVE)
[2023-08-29 09:15] LABS: LACTIC ACID 1.2 mmol/L (0.4-2.0)
[2023-08-29] MEDS: cefTRIAXone 2 GM Vial IVPUSH ONE (09:30)
[2023-08-29] MEDS: LORazepam 2 MG/ML SDV IVPUSH ONE (10:14)
[2023-08-29] MEDS: Sodium Chloride 0.9% 100 ML IV SCH (10:45)
[2023-08-29] MEDS: Iopamidol 755 Mg/ML 100 ML Bottle IV ONE (10:45)
[2023-08-29] MEDS: Azithromycin 500 MG in Sodium Chloride 0.9% 250 ML IV ONE (12:48)
[2023-08-29] MEDS ORDERED: Docusate Sodium 100 MG Cap PO PRN (12:57)
[2023-08-29] MEDS ORDERED: oxyCODONE 5 MG Tab PO PRN (12:57)
[2023-08-29] MEDS ORDERED: Glucagon,Human Recombinant 1 MG Vial IM PRN (13:08)
[2023-08-29] MEDS ORDERED: 50% Dextrose in Water 50 ML Syringe IVPUSH PRN (13:08)
[2023-08-29 13:45] LABS: HEMOGLOBIN A1C 10.3 % (4.3-5.7)
[2023-08-29 13:56] LABS: TSH ULTRASENSITIVE 2.289 uIU/mL (0.340-4.820)
[2023-08-29] MEDS: Furosemide 40 MG/4 ML VIAL IVPUSH SCH (14:19)
[2023-08-29] MEDS: Furosemide 40 MG/4 ML VIAL ONE (14:31)
[2023-08-29] MEDS: Insulin Lispro 100 Unit/ML 3 ML KwikPen SUBCUT SCH (17:59)
[2023-08-29] MEDS: Cefepime 1 GM in Sodium Chloride 0.9% 50 ML IV SCH (18:32)
[2023-08-29] MEDS: Carvedilol 12.5 MG Tab PO SCH (19:50)
[2023-08-29] MEDS: Oseltamivir 75 MG Cap PO SCH (19:51)
[2023-08-29] MEDS: Acetaminophen 325 MG Tab PO PRN (19:51)
[2023-08-29] MEDS: Albuterol/Ipratropium 3.0-0.5 MG/3 ML Neb Soln NEB PRN (19:53)
[2023-08-29] MEDS: Insulin Glargine,Hum.Rec.Anlog 100 UNIT/ML 3 ML Pen SUBCUT SCH (19:59)
[2023-08-30] MEDS: Ondansetron 4 MG/2 ML SDV IV PRN (02:04)
[2023-08-30] MEDS: Furosemide 40 MG/4 ML VIAL IVPUSH SCH (05:53)
[2023-08-30 08:15] LABS: BASOPHILS ABSOLUTE AUTO 0.03 10^3/uL (0.00-0.10); BASOPHILS PERCENT AUTO 0.4 % (0.0-1.0); EOSINOPHILS ABSOLUTE AUTO 0.07 10^3/uL (0.10-0.30); HEMATOCRIT 46.7 % (40.0-52.0); IMMATURE GRAN ABSOLUTE AUTO 0.01 10^3/uL (0.00-0.50); IMMATURE GRAN PERCENT AUTO 0.1 % (0.0-5.0); LYMPHOCYTES ABSOLUTE AUTO 1.68 10^3/uL (1.00-4.00); LYMPHOCYTES PERCENT AUTO 24.2 % (20.0-40.0); MEAN CORPUSCULAR HEMOGLOBIN 27.9 pg (27.0-31.0); MEAN CORPUSCULAR HGB CONC 34.3 g/dL (32.0-36.0); MEAN CORPUSCULAR VOLUME 81.4 fL (82.0-92.0); MONOCYTES ABSOLUTE AUTO 0.73 10^3/uL (0.10-0.80); MONOCYTES PERCENT AUTO 10.5 % (2.0-8.0); NEUTROPHILS ABSOLUTE AUTO 4.41 10^3/uL (2.50-7.00); NEUTROPHILS PERCENT AUTO 63.8 % (50.0-70.0); PLATELET COUNT,PLT 264 10^3/uL (150-400); RED BLOOD CELL COUNT 5.74 10^6/uL (4.50-6.00); RED CELL DISTRIBUTION WIDTH 13.5 % (11.5-14.5); WHITE BLOOD CELL COUNT,WBC 6.93 10^3/uL (5.00-10.00)
[2023-08-30 08:38] LABS: ANION GAP 10.9 mmol/L (5-15); CALCIUM 8.1 mg/dL (8.7-10.3); CARBON DIOXIDE,CO2 30.1 mmol/L (21.0-32.0); EST CRCL DRUG DOSING (CG) 77.52 mL/min; MAGNESIUM 1.5 mg/dL (1.8-2.4)
[2023-08-30] MEDS: Aspirin 81 MG Tab.EC PO SCH (09:30)
[2023-08-30] MEDS: Enoxaparin 40 MG/0.4 ML Syringe SUBCUT SCH (09:31)
[2023-08-30] MEDS: Magnesium Oxide 500 MG Tab PO SCH (10:34)
[2023-08-30] MEDS: glipiZIDE 5 MG Tab PO SCH (17:36)
[2023-08-30] MEDS: Albuterol/Ipratropium 3.0-0.5 MG/3 ML Neb Soln NEB ONE (20:16)
[2023-08-30] MEDS: Formoterol/Mometasone 200-5 MCG 8.8 GM Inhaler IH SCH (20:48)
[2023-08-30] MEDS: Insulin Glargine,Hum.Rec.Anlog 100 UNIT/ML 3 ML Pen SUBCUT SCH (20:50)
[2023-08-30] MEDS: Melatonin 3 MG Tab PO PRN (20:56)
[2023-08-31 07:34] LABS: BASOPHILS ABSOLUTE AUTO 0.04 10^3/uL (0.00-0.10); BASOPHILS PERCENT AUTO 0.6 % (0.0-1.0); EOSINOPHILS ABSOLUTE AUTO 0.15 10^3/uL (0.10-0.30); EOSINOPHILS PERCENT AUTO 2.2 % (1.0-3.0); HEMATOCRIT 46.5 % (40.0-52.0); HEMOGLOBIN 15.5 g/dL (13.0-17.0); IMMATURE GRAN ABSOLUTE AUTO 0.01 10^3/uL (0.00-0.50); IMMATURE GRAN PERCENT AUTO 0.1 % (0.0-5.0); LYMPHOCYTES ABSOLUTE AUTO 2.24 10^3/uL (1.00-4.00); LYMPHOCYTES PERCENT AUTO 33.3 % (20.0-40.0); MEAN CORPUSCULAR HEMOGLOBIN 27.6 pg (27.0-31.0); MEAN CORPUSCULAR HGB CONC 33.3 g/dL (32.0-36.0); MEAN CORPUSCULAR VOLUME 82.7 fL (82.0-92.0); MEAN PLATELET VOLUME 8.7 fL (7.4-10.4); MONOCYTES ABSOLUTE AUTO 0.81 10^3/uL (0.10-0.80); NEUTROPHILS ABSOLUTE AUTO 3.48 10^3/uL (2.50-7.00); NEUTROPHILS PERCENT AUTO 51.8 % (50.0-70.0); PLATELET COUNT,PLT 249 10^3/uL (150-400); RED BLOOD CELL COUNT 5.62 10^6/uL (4.50-6.00); RED CELL DISTRIBUTION WIDTH 13.4 % (11.5-14.5); WHITE BLOOD CELL COUNT,WBC 6.73 10^3/uL (5.00-10.00)
[2023-08-31 07:48] LABS: ANION GAP 6.3 mmol/L (5-15); CARBON DIOXIDE,CO2 35.4 mmol/L (21.0-32.0); CREATININE 1.31 mg/dL (0.51-1.17); EST CRCL DRUG DOSING (CG) 59.18 mL/min; MAGNESIUM 1.6 mg/dL (1.8-2.4); POTASSIUM,K 3.7 mmol/L (3.5-5.1)
[2023-08-31 10:10] LABS: C-REACTIVE PROTEIN 2.9 mg/dL (0.00-0.50)
[2023-08-31] MEDS: Potassium Chloride 20 MEQ Tab.ER PO ONE (10:23)
[2023-08-31] MEDS: Amoxicillin/Clavulanate K 875-125 MG Tab PO SCH (10:23)
[2023-08-31] MEDS: LORazepam 2 MG/ML SDV IVPUSH ONE (14:42)
[2023-08-31] MEDS: Dexamethasone 10 MG/ML SDV IV SCH (17:31)
[2023-08-31] MEDS: guaiFENesin 600 MG Tab.ER PO SCH (20:56)
[2023-09-01] MEDS: hydrALAZINE 20 MG/ML SDV IVPUSH PRN (02:56)
[2023-09-01 08:46] LABS: BASOPHILS ABSOLUTE AUTO 0.02 10^3/uL (0.00-0.10); BASOPHILS PERCENT AUTO 0.2 % (0.0-1.0); EOSINOPHILS ABSOLUTE AUTO 0.02 10^3/uL (0.10-0.30); EOSINOPHILS PERCENT AUTO 0.2 % (1.0-3.0); HEMATOCRIT 49.6 % (40.0-52.0); HEMOGLOBIN 16.7 g/dL (13.0-17.0); IMMATURE GRAN ABSOLUTE AUTO 0.01 10^3/uL (0.00-0.50); IMMATURE GRAN PERCENT AUTO 0.1 % (0.0-5.0); LYMPHOCYTES ABSOLUTE AUTO 2.31 10^3/uL (1.00-4.00); LYMPHOCYTES PERCENT AUTO 27.3 % (20.0-40.0); MEAN CORPUSCULAR HEMOGLOBIN 27.4 pg (27.0-31.0); MEAN CORPUSCULAR HGB CONC 33.7 g/dL (32.0-36.0); MEAN CORPUSCULAR VOLUME 81.4 fL (82.0-92.0); MEAN PLATELET VOLUME 8.6 fL (7.4-10.4); MONOCYTES ABSOLUTE AUTO 0.56 10^3/uL (0.10-0.80); MONOCYTES PERCENT AUTO 6.6 % (2.0-8.0); NEUTROPHILS ABSOLUTE AUTO 5.55 10^3/uL (2.50-7.00); NEUTROPHILS PERCENT AUTO 65.6 % (50.0-70.0); PLATELET COUNT,PLT 277 10^3/uL (150-400); RED BLOOD CELL COUNT 6.09 10^6/uL (4.50-6.00); RED CELL DISTRIBUTION WIDTH 13.2 % (11.5-14.5); WHITE BLOOD CELL COUNT,WBC 8.47 10^3/uL (5.00-10.00)
[2023-09-01] MEDS: Fluticasone NASAL Spray 16 GM Bottle NASBOTH SCH (08:54)
[2023-09-01] MEDS: Loratadine 10 MG Tab PO SCH (08:55)
[2023-09-01 09:02] LABS: ALBUMIN 2.52 g/dL (3.40-5.00); BILIRUBIN TOTAL 0.5 mg/dL (0.2-1.0); CALCIUM 8.1 mg/dL (8.7-10.3); CARBON DIOXIDE,CO2 30.2 mmol/L (21.0-32.0); CREATININE 0.85 mg/dL (0.51-1.17); EST CRCL DRUG DOSING (CG) 91.21 mL/min; MAGNESIUM 1.8 mg/dL (1.8-2.4); POTASSIUM,K 4.2 mmol/L (3.5-5.1)
[2023-09-01] MEDS: amLODIPine 5 MG Tab PO SCH ×2 (09:23→18:15)
[2023-09-01] MEDS: Acetylcysteine 20% 200 MG/ML 30 ML Nebulizer Soln SDV NEB SCH (09:30)
[2023-09-01] MEDS: hydrOXYzine HCl 25 MG Tab PO PRN (18:07)
[2023-09-01] MEDS: Sodium Chloride 0.9% Inhalation Soln 3 ML Neb INH PRN (22:36)
[2023-09-02 08:22] LABS: BASOPHILS ABSOLUTE AUTO 0.04 10^3/uL (0.00-0.10); BASOPHILS PERCENT AUTO 0.3 % (0.0-1.0); EOSINOPHILS ABSOLUTE AUTO 0.09 10^3/uL (0.10-0.30); EOSINOPHILS PERCENT AUTO 0.8 % (1.0-3.0); IMMATURE GRAN ABSOLUTE AUTO 0.04 10^3/uL (0.00-0.50); IMMATURE GRAN PERCENT AUTO 0.3 % (0.0-5.0); LYMPHOCYTES ABSOLUTE AUTO 4.38 10^3/uL (1.00-4.00); LYMPHOCYTES PERCENT AUTO 37.3 % (20.0-40.0); MEAN CORPUSCULAR HEMOGLOBIN 27.4 pg (27.0-31.0); MEAN CORPUSCULAR VOLUME 80.5 fL (82.0-92.0); MEAN PLATELET VOLUME 8.5 fL (7.4-10.4); MONOCYTES ABSOLUTE AUTO 0.76 10^3/uL (0.10-0.80); MONOCYTES PERCENT AUTO 6.5 % (2.0-8.0); NEUTROPHILS ABSOLUTE AUTO 6.44 10^3/uL (2.50-7.00); NEUTROPHILS PERCENT AUTO 54.8 % (50.0-70.0); PLATELET COUNT,PLT 306 10^3/uL (150-400); RED BLOOD CELL COUNT 6.21 10^6/uL (4.50-6.00); RED CELL DISTRIBUTION WIDTH 13.1 % (11.5-14.5); WHITE BLOOD CELL COUNT,WBC 11.75 10^3/uL (5.00-10.00)
[2023-09-02 08:47] LABS: ANION GAP 8.7 mmol/L (5-15); CALCIUM 8.5 mg/dL (8.7-10.3); CARBON DIOXIDE,CO2 31.3 mmol/L (21.0-32.0); CREATININE 0.9 mg/dL (0.51-1.17); EST CRCL DRUG DOSING (CG) 86.14 mL/min; MAGNESIUM 1.7 mg/dL (1.8-2.4)
[2023-09-02] MEDS: Magnesium Oxide 500 MG Tab PO SCH (10:26)
== END 2023-09-02 10:37 | disposition home or self-care (01) | DRG 194 ==
LOC: SUPCPDRO 06:16 → KA.ED 06:16 → KA.MS 12:26
PROVIDERS: ADMIT Family Medicine; ATTEND Family Medicine
DX: J10.1 Influenza due to other identified influenza virus with other respiratory manifestations (principal); N30.01 Acute cystitis with hematuria; J45.909 Unspecified asthma, uncomplicated; F41.9 Anxiety disorder, unspecified; E66.9 Obesity, unspecified; E11.69 Type 2 diabetes mellitus with other specified complication; I10 Essential (primary) hypertension; E11.65 Type 2 diabetes mellitus with hyperglycemia; Z79.82 Long term (current) use of aspirin; Z79.02 Long term (current) use of antithrombotics/antiplatelets; Z79.4 Long term (current) use of insulin; Z79.899 Other long term (current) drug therapy; I25.2 Old myocardial infarction; Z95.5 Presence of coronary angioplasty implant and graft; Z68.38 Body mass index [BMI] 38.0-38.9, adult
CPT/HCPCS: 36415; 71045; 71250; 71275; 80048; 80053; 80061; 81001; 82947; 83036; 83605; 83690; 83735; 83880; 84443; 84484; 85025; 85379; 86140; 87040; 87086; 93010; 94640; 96361; 96374; 96375; 96376; 99223-GT; 99232-GT; 99233-GT; 99239-GT; 99284; 99285-25; A9270-GY; J0360; J0456; J0692; J0696; J1100; J1650; J1815-GY; J1940; J2060; J2405; J3490; J7030; J7050; J7620-GY; Q3014; Q9967

== ENCOUNTER 2024-12-02 04:47 | Emergency (ER) | payer OTHER | END 2024-12-02 06:30 | disposition home or self-care (01) | LOC: KA.ED 04:47 | DX: F41.0 Panic disorder [episodic paroxysmal anxiety] (principal); J45.901 Unspecified asthma with (acute) exacerbation; I25.2 Old myocardial infarction; E11.9 Type 2 diabetes mellitus without complications; E66.9 Obesity, unspecified; Z79.82 Long term (current) use of aspirin; Z79.899 Other long term (current) drug therapy; Z79.4 Long term (current) use of insulin; Z68.38 Body mass index [BMI] 38.0-38.9, adult | CPT/HCPCS: 94640; 99284; A9270-GY ==

== ENCOUNTER 2024-12-10 01:47 | Emergency (ER) | payer OTHER ==
[2024-12-10] MEDS: Sodium Chloride 0.9% 10 ML Syringe FLUSH PRN (02:13)
[2024-12-10 02:23] LABS: MEAN PLATELET VOLUME 9.4 fL (7.4-10.4); PLATELET COUNT,PLT 402 10^3/uL (150-400); RED BLOOD CELL COUNT 5.28 10^6/uL (4.50-6.00); RED CELL DISTRIBUTION WIDTH 13.0 % (11.5-14.5); WHITE BLOOD CELL COUNT,WBC 20.31 10^3/uL (5.00-10.00)
[2024-12-10 02:37] LABS: ALANINE AMINOTRANSFERASE,ALT 26 U/L (14-63); ASPARTATE AMNIOTRANSFERASE,AST 19 U/L (15-37); BILIRUBIN TOTAL 0.7 mg/dL (0.2-1.0); BLOOD UREA NITROGEN,BUN 38 mg/dL (7-18); CARBON DIOXIDE,CO2 24.9 mmol/L (21.0-32.0); CHLORIDE,CL 104 mmol/L (98-107); CREATININE 1.50 mg/dL (0.51-1.17); GLUCOSE RANDOM 266 mg/dL (70-140); POTASSIUM,K 4.0 mmol/L (3.5-5.1); PROTEIN TOTAL,TP 7.5 g/dL (6.4-8.2); SODIUM,NA 141 mmol/L (136-145)
[2024-12-10 02:40] LABS: ESTIMATED GFR 53 mL/min (>=60)
[2024-12-10 02:41] LABS: SEG NEUTROPHILS PERCENT MAN 75 % (50-70)
[2024-12-10 02:42] LABS: BASOPHILS PERCENT MAN 0 % (0-1); EOSINOPHILS PERCENT MAN 3 % (1-3); LYMPHOCYTES PERCENT MAN 13 % (20-40); MONOCYTES PERCENT MAN 9 % (2-8)
[2024-12-10 02:43] LABS: PLATELET COUNT ESTIMATE INCREASED
[2024-12-10 03:03] LABS: B-TYPE NATRIURETIC PEPTIDE,BNP 348 pg/mL (0-100)
[2024-12-10] MEDS: Iopamidol 755 Mg/ML 100 ML Bottle IV ONE (03:35)
[2024-12-10] MEDS ORDERED: Heparin Sodium/D5W 250 ML IV SCH (03:45)
[2024-12-10] MEDS: Heparin Sodium 5,000 Units/ML Vial IVPUSH ONE (03:47)
[2024-12-10] MEDS: Heparin Sodium/D5W 250 ML IV SCH (03:50)
== END 2024-12-10 04:57 ==
LOC: KA.ED 01:47
DX: I21.4 Non-ST elevation (NSTEMI) myocardial infarction (principal); R79.89 Other specified abnormal findings of blood chemistry; G47.9 Sleep disorder, unspecified; I25.810 Atherosclerosis of coronary artery bypass graft(s) without angina pectoris; E11.22 Type 2 diabetes mellitus with diabetic chronic kidney disease; N18.31 Chronic kidney disease, stage 3a; F41.0 Panic disorder [episodic paroxysmal anxiety]; Z79.4 Long term (current) use of insulin; Z79.82 Long term (current) use of aspirin; Z79.899 Other long term (current) drug therapy; Z79.84 Long term (current) use of oral hypoglycemic drugs; Z95.5 Presence of coronary angioplasty implant and graft
CPT/HCPCS: 36415; 71045; 71275; 80053; 83605; 83880; 84484; 85025; 85379; 85730; 86140; 96365; 99285; J1644; Q9967